=== PATIENT | female | born 1970 | race Caucasian/White ===

== ENCOUNTER 2020-08-15 06:20 | Day surgery (SDC) | payer OTHER ==
[2020-08-13 13:08] VITALS: BMI 28.3
[2020-08-15] MEDS ORDERED: SODIUM CHLORIDE 0.9% 500 ML 500 ML IV ONE (07:05)
[2020-08-15 07:08] VITALS: RESP 16; TEMP 98.1
[2020-08-15] MEDS ORDERED: fentaNYL (PF) 50 MCG/ML 2 ML AMP ONE (07:16)
[2020-08-15] MEDS: BENZOCAINE SPRAY 1 CAN MUCOUS MEM ONE ×2 (07:26→07:29)
[2020-08-15] MEDS ORDERED: fentaNYL (PF) 50 MCG/ML 2 ML AMP IV ONE (07:39)
[2020-08-15] MEDS ORDERED: MIDAZOLAM 2 MG/2 ML VIAL IV ONE (07:39)
[2020-08-15] MEDS ORDERED: SODIUM CHLORIDE 0.9% 1,000 ML IV SCH (08:00)
[2020-08-15 08:38] VITALS: BP 131/84
[2020-08-15 08:49] VITALS: PULSE 72
--- NOTE | 2020-08-15 09:15 | ECHOT ---
TRANSESOPHAGEAL ECHOCARDIOGRAM INDICATION: To rule out intracardiac thrombus. This is a 50-year-old lady who was noted on Xarelto following a questionable thrombus noted in the left atrial appendage on [place] The plan at that time was to stop the Xarelto after repeating a STARLA, that is the reason to perform this STARLA. PROCEDURE NOTE: After obtaining informed consent, transesophageal echocardiogram is performed in left lateral position using an Omni plane probe. Local and IV sedation were obtained by using 2 mg of Versed and 25 mcg of fentanyl. Patient tolerated the procedure well without any obvious immediate complications. We obtained color Doppler and 2D evaluation, agitated saline contrast study was performed. Patient received moderate conscious sedation. Total sedation time was 5 minutes. FINDINGS: 1. Left atrial appendage. There is no intracardiac thrombus. Left atrium, right atrium, right ventricle are within normal limits. Left ventricle has normal size and systolic function. 2. Mitral valve appears anatomically normal. There is trace mitral regurgitation noted. 3. There is trace tricuspid regurgitation noted. 4. Interatrial septum, there is no evidence of [id number] shunt by color-flow Doppler or [id number] shunt by agitated saline contrast study. 5. Aorta is free of aneurysm dissection of significant atherosclerosis. Aortic valve is a 3-leaflet valve. There is no evidence of aortic stenosis or regurgitation. CONCLUSION: No thrombus noted within the left atrial appendage. PLAN: I advised the patient to stop the Xarelto at this time. MMODL / IJN: [id number] /
--- NOTE | 2020-08-15 09:45 | LTR ---
DATE OF SERVICE: 08/15/2020 RE: Sari Rowe Dear Dr. Reyes; I performed transesophageal echo on Sari Rowe, a detailed STARLA is enclosed for your records. In brief, the transesophageal echo did not reveal any thrombus within the left atrial appendage and she does not need the Xarelto. Thank you for giving us the privilege in participating with this pleasant lady. Sincerely, EDUARDO Cosme / LUCIEN: [id number] /
== END 2020-08-15 09:02 | disposition home or self-care (01) ==
LOC: CATHCVL 06:20
PROVIDERS: ATTEND Internal Medicine Cardiovascular Disease
DX: G45.9 Transient cerebral ischemic attack, unspecified (principal); I10 Essential (primary) hypertension; E78.5 Hyperlipidemia, unspecified; I73.9 Peripheral vascular disease, unspecified; Z79.01 Long term (current) use of anticoagulants; Z79.51 Long term (current) use of inhaled steroids; Z79.899 Other long term (current) drug therapy; Z88.0 Allergy status to penicillin; Z88.5 Allergy status to narcotic agent; Z82.49 Family history of ischemic heart disease and other diseases of the circulatory system; Z72.0 Tobacco use
CPT/HCPCS: 93312; 93320; 93325; 81025; J2250; J3010

== ENCOUNTER 2020-09-23 11:07 | Emergency (ER) | payer OTHER ==
[2020-09-23 11:14] VITALS: RESP 18
[2020-09-23] MEDS ORDERED: KETOROLAC 15 MG/ML 1 ML VIAL IVP STA (11:41)
[2020-09-23] MEDS ORDERED: ONDANSETRON 4 MG/2 ML VIAL IVP STA (11:41)
[2020-09-23] MEDS ORDERED: SODIUM CHLORIDE 0.9% 1,000 ML IV STA (11:41)
[2020-09-23 11:56] LABS: Basophils # (A) 0.1 k/uL (0-0.2); Basophils % (A) 1 %; Eosinophils # (A) 0.1 k/uL (0-0.7); Eosinophils % (A) 3 %; HCT 42.8 % (34.0-46.0); Lymphocytes # (A) 1.6 k/uL (1.0-4.8); Lymphocytes % (A) 28 %; MCH 32.6 pg (25.0-35.0); Monocytes # (A) 0.4 k/uL (0-1.0); Monocytes % (A) 6 %; Neutrophils # (A) 3.4 k/uL (1.3-7.7); Neutrophils % (A) 60 %; Platelet Count 267 k/uL (150-450); WBC 5.7 k/uL (3.8-10.6)
--- NOTE | 2020-09-23 11:56 | ED ---
Nausea/Vomiting/Diarrhea HPI - General Chief complaint: Nausea/Vomiting/Diarrhea Stated complaint: nausea, headache, covid exposure Time Seen by Provider: 09/23/20 11:26 Source: patient Mode of arrival: ambulatory Limitations: no limitations - History of Present Illness Initial comments: Patient is a 50-year-old female, history of COPD, uses 2 L at night, hypertension, presenting to the emergency Department with complaints of nausea, body aches, chills and a headache for the past 2-3 days. Patient states she was exposed to a positive Covid case at work. Patient states her headache started about 3 days ago and then yesterday started with the body aches and chills. She has also been having nausea. No vomiting, no diarrhea, no abdominal pain. She states her chest does feel heavy, no coughing or fever. She states she has been urinating more frequently. Her appetite has been low. Patient states she "just does not feel very good." Patient has no other complaints at this time. Upon arrival to the ER, her vital signs are stable. - Related Data Home Medications Medication Instructions Recorded Confirmed ARIPiprazole [Abilify] 5 mg PO HS 08/13/20 09/23/20 Atorvastatin [Lipitor] 40 mg PO DAILY 08/13/20 09/23/20 DULoxetine HCL [Cymbalta] 60 mg PO DAILY 08/13/20 09/23/20 Losartan [Cozaar] 50 mg PO DAILY 08/13/20 09/23/20 Metoprolol Succinate [Toprol XL] 25 mg PO DAILY 08/13/20 09/23/20 Umeclidinium [place] [Incruse 1 puff INHALATION RT-DAILY 08/13/20 09/23/20 Ellipta] busPIRone HCl [Buspar] 10 mg PO BID 08/13/20 09/23/20 Albuterol Sulfate [Albuterol 1 - 2 puff PO RT-Q6H PRN 09/23/20 09/23/20 Sulfate Hfa] Gabapentin 600 mg PO BID 09/23/20 09/23/20 Ipratropium-Albuterol Nebulize 3 ml INHALATION RT-Q6H PRN 09/23/20 09/23/20 [Duoneb 0.5 mg-3 mg/3 ml Soln] Pantoprazole Sodium [Protonix] 40 mg PO DAILY 09/23/20 09/23/20 Allergies Allergy/AdvReac Type Severity Reaction Status Date / Time Penicillins Allergy Unknown Verified 09/23/20 12:08 codeine AdvReac Nausea & Verified 09/23/20 12:08 [From Tylenol-Codeine #3] Vomiting Review of Systems ROS Statement: Those systems with pertinent positive or pertinent negative responses have been documented in the HPI. ROS Other: All systems not noted in ROS Statement are negative. Past Medical History Past Medical History: Asthma, COPD, CVA/TIA, Hyperlipidemia, Hypertension, Pulmonary Embolus (PE), Sleep Apnea/CPAP/BIPAP Additional Past Medical History / Comment(s): PE dx. in May, doesn't use CPAP currently-uses O2 2l @[facility], ?TIA in May-no residual effects other than some intermittent numbness/tingling left arm, "pre-cancerous" cells breast & family hx.-grandmother & aunt History of Any Multi-Drug Resistant Organisms: None Reported Past Surgical History: Breast Surgery, Cholecystectomy, Hernia Repair, Hysterectomy Additional Past Surgical History / Comment(s): prophylactic mastectomy stephanie D/T family hx Past Anesthesia/Blood Transfusion Reactions: No Reported Reaction Past Psychological History: Anxiety, Depression Smoking Status: Former smoker - Past Family History Mother Additional Family Medical History / Comment(s): had heart valve replacement General Exam - General Exam Comments Initial Comments: GENERAL: Patient is well-developed and well-nourished. Patient is nontoxic and in no acute distress. HEAD: Atraumatic, normocephalic. EYES: Pupils equal round and reactive to light, extraocular movements intact, sclera anicteric, conjunctiva are normal. Eyelids were unremarkable. ENT: TMs normal, nares patent, oropharynx clear without exudates. Moist mucous membranes. NECK: Normal range of motion, supple without lymphadenopathy or JVD. LUNGS: Unlabored respirations. Breath sounds clear to auscultation bilaterally and equal. No wheezes rales or rhonchi. HEART: Regular rate and rhythm without murmurs, rubs or gallops. ABDOMEN: Soft, nontender, normoactive bowel sounds. No guarding, no rebound. No masses appreciated. : Deferred MUSCULOSKELETAL: Normal extremities with adequate strength and normal range of motion, no pitting or edema. No clubbing or cyanosis. NEUROLOGICAL: Patient is alert and oriented x 3. Motor and sensory are also intact. Cranial nerves II through XII grossly intact. Symmetrical smile. Normal speech, normal gait. PSYCH: Normal mood, normal affect. SKIN: Warm, Dry, normal turgor, no rashes or lesions noted. Limitations: no limitations Course Vital Signs 09/23/20 11:11 Temperature 98.4 F Pulse Rate 76 Respiratory 18 Rate Blood Pressure 152/99 O2 Sat by Pulse 98 Oximetry Medical Decision Making - Medical Decision Making Patient is a 50-year-old female here with body aches, chills, nausea for the pas t 3 days. She was exposed to a positive Covid case at her work. Her vital signs are stable upon arrival, her EKG shows no acute process. Her exam reveals no acute findings. Labs reveal a normal white count, kidney function is stable, liver enzymes are very slightly elevated, troponin is negative, urine shows no evidence of infection, rapid Covid and influenza are both negative today. Chest x-ray shows no acute process. Patient was given fluids, Zofran and reports improvement in her symptoms. I discussed the patient even on her rapid test is negative today, she still presenting for possible Covid infection. Recommended continuous of quarantine. Continue to increase fluids, take Tylenol as needed for body aches. She can follow up with her PCP. Return parameters were discussed with the patient she verbalized understanding. Case discussed with Dr. Ware. - Lab Data Result diagrams: 09/23/20 11:44 09/23/20 11:44 Lab Results 09/23/20 09/23/20 09/23/20 Range/Units 11:44 11:44 11:44 WBC 5.7 (3.8-10.6) k/uL RBC 4.60 (3.80-5.40) m/uL Hgb 15.0 (11.4-16.0) gm/dL Hct 42.8 (34.0-46.0) % MCV 93.0 (80.0-100.0) fL MCH 32.6 (25.0-35.0) pg MCHC 35.0 (31.0-37.0) g/dL RDW 12.0 (11.5-15.5) % Plt Count 267 (150-450) k/uL MPV 7.0 Neutrophils % 60 % Lymphocytes % 28 % Monocytes % 6 % Eosinophils % 3 % Basophils % 1 % Neutrophils # 3.4 (1.3-7.7) k/uL Lymphocytes # 1.6 (1.0-4.8) k/uL Monocytes # 0.4 (0-1.0) k/uL Eosinophils # 0.1 (0-0.7) k/uL Basophils # 0.1 (0-0.2) k/uL Sodium 138 (137-145) mmol/L Potassium 3.4 L (3.5-5.1) mmol/L Chloride 100 (98-107) mmol/L Carbon Dioxide 34 H (22-30) mmol/L Anion Gap 4 mmol/L BUN 9 (7-17) mg/dL Creatinine 0.67 (0.52-1.04) mg/dL Est GFR (CKD-EPI)AfAm >90 (>60 ml/min/1.73 sqM) Est GFR (CKD-EPI)NonAf >90 (>60 ml/min/1.73 sqM) Glucose 103 H (74-99) mg/dL Plasma Lactic Acid Michi 1.3 (0.7-2.0) mmol/L Calcium 9.5 (8.4-10.2) mg/dL Total Bilirubin 0.7 (0.2-1.3) mg/dL AST 38 H (14-36) U/L ALT 35 H (4-34) U/L Alkaline Phosphatase 117 (38-126) U/L Troponin I (0.000-0.034) ng/mL Total Protein 7.1 (6.3-8.2) g/dL Albumin 4.2 (3.5-5.0) g/dL Urine Color Urine Appearance (Clear) Urine pH (5.0-8.0) Ur Specific [place] (1.001-1.035) Urine Protein (Negative) Urine Glucose (UA) (Negative) Urine Ketones (Negative) Urine Blood (Negative) Urine Nitrite (Negative) Urine Bilirubin (Negative) Urine Urobilinogen (<2.0) mg/dL Ur Leukocyte Esterase (Negative) Coronavirus (PCR) (Not Detectd) Influenza Type A RNA (Not Detectd) Influenza Type B (PCR) (Not Detectd) 09/23/20 09/23/20 09/23/20 Range/Units 11:44 12:21 12:21 WBC (3.8-10.6) k/uL RBC (3.80-5.40) m/uL Hgb (11.4-16.0) gm/dL Hct (34.0-46.0) % MCV (80.0-100.0) fL MCH (25.0-35.0) pg MCHC (31.0-37.0) g/dL RDW (11.5-15.5) % Plt Count (150-450) k/uL MPV Neutrophils % % Lymphocytes % % Monocytes % % Eosinophils % % Basophils % % Neutrophils # (1.3-7.7) k/uL Lymphocytes # (1.0-4.8) k/uL Monocytes # (0-1.0) k/uL Eosinophils # (0-0.7) k/uL Basophils # (0-0.2) k/uL Sodium (137-145) mmol/L Potassium (3.5-5.1) mmol/L Chloride (98-107) mmol/L Carbon Dioxide (22-30) mmol/L Anion Gap mmol/L BUN (7-17) mg/dL Creatinine (0.52-1.04) mg/dL Est GFR (CKD-EPI)AfAm (>60 ml/min/1.73 sqM) Est GFR (CKD-EPI)NonAf (>60 ml/min/1.73 sqM) Glucose (74-99) mg/dL Plasma Lactic Acid Michi (0.7-2.0) mmol/L Calcium (8.4-10.2) mg/dL Total Bilirubin (0.2-1.3) mg/dL AST (14-36) U/L ALT (4-34) U/L Alkaline Phosphatase (38-126) U/L Troponin I <0.012 (0.000-0.034) ng/mL Total Protein (6.3-8.2) g/dL Albumin (3.5-5.0) g/dL Urine Color Yellow Urine Appearance Clear (Clear) Urine pH 7.0 (5.0-8.0) Ur Specific [place] 1.015 (1.001-1.035) Urine Protein Negative (Negative) Urine Glucose (UA) Negative (Negative) Urine Ketones Negative (Negative) Urine Blood Negative (Negative) Urine Nitrite Negative (Negative) Urine Bilirubin Negative (Negative) Urine Urobilinogen 4.0 (<2.0) mg/dL Ur Leukocyte Esterase Negative (Negative) Coronavirus (PCR) Not Detected (Not Detectd) Influenza Type A RNA Not Detected (Not Detectd) Influenza Type B (PCR) Not Detected (Not Detectd) - EKG Data EKG Comments: Normal sinus rhythm, normal ECG, no signs of acute process. Ventricular rate 69, MN interval 1:30, QTC 410. Disposition Clinical Impression: Viral infection, Dehydration Disposition: HOME SELF-CARE Condition: Stable Instructions (If sedation given, give patient instructions): Viral Syndrome (ED) Additional Instructions: Please return to the Emergency Department if symptoms worsen or any other concerns. Workup today including chest x-ray and Covid test are negative. Continue to increase fluid intake, take Zofran as needed for additional nausea. Follow up with her PCP in 1-3 days. Is patient prescribed a controlled substance at d/c from ED?: No Referrals: Amy Jackson MD [Primary Care Provider] - 1-2 days
[2020-09-23 12:09] LABS: ALT 35 U/L (4-34); AST 38 U/L (14-36); African American GFR (CKD) >90 (>60 ml/min/1.73 sqM); Albumin 4.2 g/dL (3.5-5.0); Alkaline Phosphatase 117 U/L (38-126); Anion Gap 4 mmol/L; Blood Urea Nitrogen 9 mg/dL (7-17); Calcium 9.5 mg/dL (8.4-10.2); Carbon Dioxide 34 mmol/L (22-30); Chloride 100 mmol/L (98-107); Glucose 103 mg/dL (74-99); Non-African American GFR(CKD) >90 (>60 ml/min/1.73 sqM); Potassium 3.4 mmol/L (3.5-5.1); Sodium 138 mmol/L (137-145); Total Bilirubin 0.7 mg/dL (0.2-1.3); Total Protein 7.1 g/dL (6.3-8.2)
[2020-09-23 12:32] LABS: Appearance,Urine Clear (Clear); Bilirubin,Urine Negative (Negative); Blood,Urine Negative (Negative); Color,Urine Yellow; Glucose,Urine (UA) Negative (Negative); Ketones,Urine Negative (Negative); Leukocyte Esterase,Urine Negative (Negative); Nitrite,Urine Negative (Negative); Protein,Urine Negative (Negative); Specific Gravity,Urine 1.015 (1.001-1.035)
[2020-09-23 13:09] LABS: SARS-CoV-2 RNA Rapid Abbott Not Detected (Not Detectd)
--- NOTE | 2020-09-23 13:42 | XR ---
EXAMINATION TYPE: XR chest 2V DATE OF EXAM: 09/23/2020 COMPARISON: Prior chest x-ray dated 07/11/2020 HISTORY: COPD TECHNIQUE: Frontal and lateral views of the chest are obtained. FINDINGS: Surgical clips are present over the breasts as on prior exam, suspect breast prostheses. N o evident pneumothorax or pleural effusion. Cardiac mediastinal silhouette, pulmonary vascularity and arya are stable. No evident airspace disease. Prominent lung volumes may be indicative of underlying COPD. Surgical clips present in the upper abdomen. IMPRESSION: No acute cardiopulmonary process.
[2020-09-23] MEDS ORDERED: ONDANSETRON 4 MG ODT STARTER PACK 2 TAB BTL PO STA (13:53)
[2020-09-23 14:14] VITALS: BP 137/82; PULSE 82; TEMP 99.2
== END 2020-09-23 14:14 | disposition home or self-care (01) ==
LOC: EC 11:07
DX: B34.9 Viral infection, unspecified (principal); E86.0 Dehydration; R74.8 Abnormal levels of other serum enzymes; I10 Essential (primary) hypertension; E78.5 Hyperlipidemia, unspecified; J44.9 Chronic obstructive pulmonary disease, unspecified; G47.30 Sleep apnea, unspecified; F41.9 Anxiety disorder, unspecified; F32.9 Major depressive disorder, single episode, unspecified; Z79.899 Other long term (current) drug therapy; Z88.5 Allergy status to narcotic agent; Z88.0 Allergy status to penicillin; Z86.711 Personal history of pulmonary embolism; Z90.49 Acquired absence of other specified parts of digestive tract; Z87.891 Personal history of nicotine dependence; Z99.89 Dependence on other enabling machines and devices; Z86.73 Personal history of transient ischemic attack (TIA), and cerebral infarction without residual deficits; Z20.828 Contact with and (suspected) exposure to other viral communicable diseases
CPT/HCPCS: 36415; 93005; 80053; 83605; 84484; 85025; 81003; 87502; 87635; 71046; 99284; 96374; 96375; 96361; J2405; J1885; S0119

== ENCOUNTER → 2020-11-18 | Outpatient (CLI) | payer OTHER ==
--- NOTE | 2020-11-18 09:02 | CT ---
EXAMINATION TYPE: CT angio chest DATE OF EXAM: 11/18/2020 COMPARISON: Radiograph 11/06/2020. Prior CT 10/30/2013 HISTORY: 50-year-old female are 06.09, dyspnea TECHNIQUE: Contiguous axial scanning of the chest performed with IV Contrast, patient injected with 1 00 mL of Isovue 370. Coronal/sagittal MIP reconstructions performed. CT DLP: 185.2 mGycm Automated exposure control for dose reduction was used. FINDINGS: Bilateral breast implants are demonstrated. Heart upper limits of normal in size without pericardial effusion. Aorta normal caliber with conventional arch vessel branching anatomy. Satisfactory opacification of the pulmonary arterial system. No evidence for pulmonary embolus. No thoracic lymphadenopathy by CT size criteria. Small calcified left hilar and AP window lymph nodes compatible with prior granulomatous disease. Mild apical pleural scarring. Mild to moderate diffuse bronchial wall thickening. No consolidation or pleural effusion. Strandy atelectasis or scarring at the left base. Small approximately 1 cm nonspecific hypodensity within the medial spleen was partially visualized on the 2013 exam. Otherwise, visualized upper abdomen otherwise shows no gross abnormality. Bones: Accentuated mid thoracic kyphosis with mild degenerative disc disease. IMPRESSION: 1. NO EVIDENCE FOR PULMONARY EMBOLUS. 2. MILD TO MODERATE BRONCHIAL WALL THICKENING COULD REFLECT BRONCHITIS OR CHRONIC ASTHMA. 3. SMALL HIATAL HERNIA.
== END | disposition home or self-care (01) ==
LOC: RADCTMAIN 07:41
PROVIDERS: ATTEND Internal Medicine
DX: K44.9 Diaphragmatic hernia without obstruction or gangrene (principal); J98.09 Other diseases of bronchus, not elsewhere classified
CPT/HCPCS: 71275; Q9967

== ENCOUNTER 2020-12-09 10:02 | Day surgery (SDC) | payer OTHER ==
[2020-12-05 15:12] VITALS: BMI 27.6
[~2020-12-09 10:02] MED LIST: LACTATED RINGERS 1,000 ML IV SCH; LIDOCAINE 1% (10MG/ML) FOR IV START INTRADERMA PRN; MIDAZOLAM 2 MG/2 ML VIAL IV PRN
[2020-12-09 10:17] VITALS: TEMP 97.2
[2020-12-09] MEDS ORDERED: PROPOFOL 10 MG/ML 20 ML VIAL IV ONE (11:10)
[2020-12-09 11:41] VITALS: RESP 16
--- NOTE | 2020-12-09 11:43 | P.PCN ---
Date of Procedure: 12/09/20 Description of Procedure: BRIEF HISTORY: Patient is a 42-year-old female presenting for outpatient colonoscopy for evaluation of diarrhea. Patient was seen in GI clinic reporting 2-3 loose bowel movements daily. She reported associated urgency, bloating and left lower quadrant abdominal pain and cramping. She previously had colonoscopy in 2018 and was told to repeat 3 years later. PROCEDURE PERFORMED: Colonoscopy with polypectomy. PREOPERATIVE DIAGNOSIS: Diarrhea, left lower quadrant abdominal pain, prior colonoscopy in 2018. ESTIMATED BLOOD LOSS: Minimal. IV sedation per Anesthesia. PROCEDURE: After informed consent was obtained, the patient, was brought into the endoscopy unit. IV sedation was administered by Anesthesia under continuous monitoring. Digital rectal examination was normal. Initially the Olympus CF-190 flexible video colonoscope was then inserted in the rectum, gradually advanced into the cecum without any difficulty. Careful examination was performed as the scope was gradually being withdrawn. Ileocecal valve and the appendiceal orifice were visualized and appeared normal. Prep was excellent. Mucosa of the cecum, ascending colon, transverse colon, descending colon, sigmoid colon, and rectum appeared normal, with random biopsies in the right left colon. Terminal ileum also appeared normal with biopsied. Diminutive 2 mm polyp in the descending colon removed with cold forcep polypectomy. Patient did have an Endo Clip noted on the ileocecal valve from prior endoscopy. Retroflexion was performed in the rectum and no lesions were seen. The patient tolerated the procedure well. IMPRESSION: Normal-appearing colon from rectum to cecum and normal-appearing terminal ileum with random biopsies taken of the terminal ileum, right and left colon. Diminutive descending colon polyp removed with cold forceps. Endo Clip noted on the ileocecal valve from prior colonoscopy. RECOMMENDATIONS: Findings of this examination were discussed with the patient and her family. Okay to resume diet. Okay to resume medications. Await pathology from biopsies. Follow up in GI clinic as scheduled. Recommend repeat colonoscopy in 5 years for colon polyps pending pathology from polypectomy.
[2020-12-09 12:05] VITALS: BP 131/78; PULSE 72
== END 2020-12-09 12:33 | disposition home or self-care (01) ==
LOC: ORWHC2ENDO 10:02
PROVIDERS: ATTEND Internal Medicine
DX: K52.9 Noninfective gastroenteritis and colitis, unspecified (principal); K63.5 Polyp of colon; Z98.890 Other specified postprocedural states; Z87.891 Personal history of nicotine dependence; Z88.0 Allergy status to penicillin; Z88.5 Allergy status to narcotic agent; Z79.899 Other long term (current) drug therapy; Z79.01 Long term (current) use of anticoagulants; Z90.49 Acquired absence of other specified parts of digestive tract; Z90.710 Acquired absence of both cervix and uterus; Z97.8 Presence of other specified devices
CPT/HCPCS: 88305; 45380; J2250; J2704

== ENCOUNTER 2021-01-09 14:04 | Observation (INO) | payer OTHER ==
[2021-01-09 14:43] LABS: Basophils % (A) 0 %; Eosinophils # (A) 0.2 k/uL (0-0.7); Eosinophils % (A) 5 %; HCT 40.8 % (34.0-46.0); HGB 14.1 gm/dL (11.4-16.0); Lymphocytes # (A) 1.6 k/uL (1.0-4.8); Lymphocytes % (A) 31 %; MCH 32.2 pg (25.0-35.0); MCHC 34.4 g/dL (31.0-37.0); MCV 93.5 fL (80.0-100.0); Monocytes # (A) 0.3 k/uL (0-1.0); Monocytes % (A) 7 %; Neutrophils # (A) 2.9 k/uL (1.3-7.7); Neutrophils % (A) 56 %; Platelet Count 263 k/uL (150-450); RBC 4.37 m/uL (3.80-5.40); RDW 12.8 % (11.5-15.5); WBC 5.2 k/uL (3.8-10.6)
--- NOTE | 2021-01-09 14:45 | XR ---
EXAMINATION TYPE: XR chest 2V DATE OF EXAM: 01/09/2021 COMPARISON: 09/23/2020 TECHNIQUE: PA and lateral views submitted. HISTORY: Chest pain FINDINGS: The lungs are clear and there is no pneumothorax, pleural effusion, or focal pneumonia. Hyperinflat ion. Heart enlarged. Surgical clips seen overlying the chest bilaterally. No overt failure. Hypertrop hic and degenerative change of the spine. Surgical clips in the abdomen. Biapical pleural thickening. IMPRESSION: 1. COPD..
[2021-01-09 14:54] LABS: INR 0.9 (<1.2); Partial Thromboplastin Time 24.2 sec (22.0-30.0); Prothrombin Time 10.1 sec (9.0-12.0)
[2021-01-09 14:55] LABS: ALT 34 U/L (4-34); AST 34 U/L (14-36); African American GFR (CKD) >90 (>60 ml/min/1.73 sqM); Albumin 4.5 g/dL (3.5-5.0); Alkaline Phosphatase 126 U/L (38-126); Anion Gap 8 mmol/L; Blood Urea Nitrogen 10 mg/dL (7-17); Calcium 9.4 mg/dL (8.4-10.2); Carbon Dioxide 34 mmol/L (22-30); Chloride 98 mmol/L (98-107); Glucose 99 mg/dL (74-99); Magnesium 1.5 mg/dL (1.6-2.3); Non-African American GFR(CKD) 90 (>60 ml/min/1.73 sqM); Potassium 3.4 mmol/L (3.5-5.1); Sodium 140 mmol/L (137-145); Total Bilirubin 0.7 mg/dL (0.2-1.3); Total Protein 7.4 g/dL (6.3-8.2)
[2021-01-09] MEDS ORDERED: MORPHINE SULFATE 4 MG/ML SYRINGE IVP STA ×2 (16:15→18:06)
--- NOTE | 2021-01-09 17:15 | CT ---
EXAMINATION TYPE: CT chest angio for PE DATE OF EXAM: 01/09/2021 COMPARISON: 11/18/2020 HISTORY: Pleuritic chest pain, history of PE. CT DLP: 303.3 mGycm Automated exposure control for dose reduction was used. CONTRAST: Performed with IV Contrast, patient injected with 100 mL of Isovue 370. There are 3-D post processed images. There is some mild reticular interstitial infiltrate in the lower lung munoz. There is no pulmonary mass. There is no mediastinal adenopathy. There are no hilar masses. Heart size is normal. There is no pericardial effusion. Thoracic aorta is intact. There is no aneurys m or dissection. There is normal contrast opacification of the pulmonary arteries. There are no filling defects. There are bilateral breast implants. Thoracic vertebra show fairly normal alignment. There is no compressi on fracture. The ribs appear intact. Shoulder joints are intact. There is 2 cm cyst in the superior s pleen. IMPRESSION: No evidence of pulmonary embolism. There is new minimal interstitial infiltrate in the lower lung fie lds compared to old exam.
[2021-01-09] MEDS ORDERED: ASPIRIN 81 MG PO STA (18:06)
--- NOTE | 2021-01-09 18:14 | ED ---
Chest Pain HPI - General Chief Complaint: Chest Pain Stated Complaint: Chest tightness,L Arm tingling Time Seen by Provider: 01/09/21 14:10 Source: patient Mode of arrival: wheelchair Limitations: no limitations - History of Present Illness Initial Comments: 50-year-old female with past medical history of COPD on 2 L at night, asthma, hypertension, PE who presents emergency Department with reported left sided chest pain. Patient reports the pain started last night. Radiates into her left arm. States it's pleuritic in nature and constant. Admits to associated nausea without vomiting. No fevers, chills or cough. Denies previous history of cardiac disease. Does have a history of PE and states she has not been on her anticoagulation. Denies abdominal pain. No unilateral numbness or weakness. Last stress test was several years ago. No alleviating, precipitating or modifying factors - Related Data Home Medications Medication Instructions Recorded Confirmed ARIPiprazole [Abilify] 5 mg PO DAILY 08/13/20 01/09/21 Atorvastatin [Lipitor] 40 mg PO HS 08/13/20 01/09/21 DULoxetine HCL [Cymbalta] 60 mg PO DAILY 08/13/20 01/09/21 Losartan [Cozaar] 50 mg PO DAILY 08/13/20 01/09/21 Metoprolol Succinate [Toprol XL] 25 mg PO DAILY 08/13/20 01/09/21 Umeclidinium [place] [Incruse 1 puff INHALATION RT-DAILY 08/13/20 01/09/21 Ellipta] busPIRone HCl [Buspar] 10 mg PO BID 08/13/20 01/09/21 Albuterol Sulfate [Albuterol 1 - 2 puff INHALATION RT-Q6H PRN 09/23/20 01/09/21 Sulfate Hfa] Gabapentin 600 mg PO BID 09/23/20 01/09/21 Ipratropium-Albuterol Nebulize 3 ml INHALATION RT-Q6H PRN 09/23/20 01/09/21 [Duoneb 0.5 mg-3 mg/3 ml Soln] Pantoprazole Sodium [Protonix] 40 mg PO DAILY 09/23/20 01/09/21 Acetaminophen Tab [Tylenol] 1,000 mg PO Q6HR PRN 01/09/21 01/09/21 Hyoscyamine Sulfate [Hyoscyamine 0.125 mg SL Q6H PRN 01/09/21 01/09/21 Sulfate SL] Previous Rx's Medication Instructions Recorded Rivaroxaban [Xarelto] 20 mg PO W/SUPPER #30 tab 01/10/21 Allergies Allergy/AdvReac Type Severity Reaction Status Date / Time Penicillins Allergy Unknown Verified 01/09/21 16:42 codeine AdvReac Nausea & Verified 01/09/21 16:42 [From Tylenol-Codeine #3] Vomiting Review of Systems ROS Statement: Those systems with pertinent positive or pertinent negative responses have been documented in the HPI. ROS Other: All systems not noted in ROS Statement are negative. EKG Findings - EKG Comments: EKG Findings:: EKG demonstrates a sinus rhythm with a ventricular rate of 74. [place] interval 140. Dress 80. QTC 448. No acute ST segment elevations or depressions Past Medical History Past Medical History: Asthma, COPD, CVA/TIA, Hyperlipidemia, Hypertension, Pulmonary Embolus (PE), Sleep Apnea/CPAP/BIPAP Additional Past Medical History / Comment(s): PE dx. in May, doesn't use CPAP currently-uses O2 2l @[facility], ?TIA in May-no residual effects other than some intermittent numbness/tingling left arm, "pre-cancerous" cells breast & family hx.-grandmother & aunt History of Any Multi-Drug Resistant Organisms: None Reported Past Surgical History: Breast Surgery, Cholecystectomy, Hernia Repair, Hysterectomy Additional Past Surgical History / Comment(s): prophylactic mastectomy stephanie D/T family hx Past Anesthesia/Blood Transfusion Reactions: No Reported Reaction Past Psychological History: Anxiety, Depression Smoking Status: Former smoker Past Alcohol Use History: None Reported Past Drug Use History: None Reported - Past Family History Mother Additional Family Medical History / Comment(s): had heart valve replacement General Exam Limitations: no limitations General appearance: alert, in no apparent distress Head exam: Present: atraumatic, normocephalic, normal inspection Eye exam: Present: normal appearance, PERRL, EOMI. Absent: scleral icterus, conjunctival injection, periorbital swelling ENT exam: Present: normal exam, mucous membranes moist Neck exam: Present: normal inspection. Absent: tenderness, meningismus, lymphadenopathy Respiratory exam: Present: normal lung sounds bilaterally. Absent: respiratory distress, wheezes, rales, rhonchi, stridor Cardiovascular Exam: Present: regular rate, normal rhythm, normal heart sounds. Absent: systolic murmur, diastolic murmur, rubs, gallop, clicks GI/Abdominal exam: Present: soft, normal bowel sounds. Absent: distended, tenderness, guarding, rebound, rigid Extremities exam: Present: normal inspection, full ROM, normal capillary refill, other (equal websphere consultant strength). Absent: tenderness, pedal edema, joint swelling, calf tenderness Back exam: Present: normal inspection Neurological exam: Present: alert, oriented X3, CN II-XII intact Psychiatric exam: Present: normal affect, normal mood Skin exam: Present: warm, dry, intact, normal color. Absent: rash Course Vital Signs 01/09/21 01/09/21 01/09/21 14:10 15:44 16:36 Temperature 98.0 F Pulse Rate 73 63 73 Pulse Rate [ Pulse Oximetery ] Respiratory 18 18 18 Rate Blood Pressure 148/97 164/97 155/90 Blood Pressure [Right Arm] O2 Sat by Pulse 100 99 100 Oximetry 01/09/21 01/09/21 01/09/21 18:05 19:36 22:37 Temperature 97.6 F Pulse Rate 71 72 Pulse Rate [ 68 Pulse Oximetery ] Respiratory 18 18 19 Rate Blood Pressure 154/97 130/80 Blood Pressure 144/80 [Right Arm] O2 Sat by Pulse 95 95 98 Oximetry Chest Pain MDM - MDM Upon arrival patient was placed into trauma bay 2. A thorough history and physical exam was performed. 12-lead EKG is performed. IV is established. Patient was given a dose of morphine. Lab studies conducted and a chest x-rays performed. Results are reviewed with the patient. Because of her history of previous PE she is CT which demonstrates no evidence of pulmonary is him. New minimal interstitial infiltrate in the lower lung munoz. Patient does not have any symptoms of infectious process and therefore anabiotic or held at this time. She is given an aspirin. Patient continues to have worsening pain therefore given a second dose of morphine. I did discuss results with Dr. Jackson. patient will be admitted at this time. Cardiology will be placed on consult. Dr. Jackson does request that I restart her xarelto. Patient agreed to the treatment plan and is awaiting a bed on the floor Disposition Clinical Impression: Chest pain Disposition: ADMITTED IP TO THIS HOSP Condition: Stable Is patient prescribed a controlled substance at d/c from ED?: No Decision to Admit Reason: Admit from EC Decision Date: 01/09/21 Decision Time: 18:14
[2021-01-09] MEDS ORDERED: NALOXONE 0.4 MG/ML 1 ML VIAL IV PRN (18:15)
[2021-01-09] MEDS ORDERED: HYOSCYAMINE SULFATE 0.125 MG TAB PO PRN (18:16)
[2021-01-09] MEDS ORDERED: ATORVASTATIN 40 MG TAB PO SCH (21:00)
[2021-01-09] MEDS: GABAPENTIN 300 MG CAP PO SCH (22:30)
[2021-01-09] MEDS: busPIRone HCl 10 MG TAB PO SCH (22:30)
[2021-01-09] MEDS: MORPHINE SULFATE 4 MG/ML SYRINGE IV PRN (22:31)
[2021-01-10] MEDS: RIVAROXABAN 20 MG TAB PO SCH ×2 (01:01→16:35)
[2021-01-10] MEDS ORDERED: PANTOPRAZOLE 40 MG TABLET PO SCH (07:30)
[2021-01-10] MEDS: IPRATROPIUM 0.5 MG/2.5 ML NEBU INHALATION SCH ×3 (07:35→15:37)
[2021-01-10] MEDS: IPRATROPIUM-ALBUTEROL 3 ML NEB INHALATION PRN ×2 (07:35→11:35)
[2021-01-10 07:37] VITALS: TEMP 98
[2021-01-10] MEDS: busPIRone HCl 10 MG TAB PO SCH (07:37)
[2021-01-10] MEDS: GABAPENTIN 300 MG CAP PO SCH (07:38)
[2021-01-10] MEDS: MORPHINE SULFATE 4 MG/ML SYRINGE IV PRN (07:38)
[2021-01-10] MEDS ORDERED: DULoxetine HCL 60 MG CAPSULE.DR PO SCH (09:00)
[2021-01-10] MEDS ORDERED: LOSARTAN 50 MG TAB PO SCH (09:00)
[2021-01-10] MEDS ORDERED: METOPROLOL SUCCINATE (ER) 25 MG TAB.ER.24H PO SCH (09:00)
[2021-01-10 09:12] LABS: Basophils # (A) 0.03 X 10*3/uL (0.00-0.10); Basophils % (A) 0.8 %; Eosinophils # (A) 0.22 X 10*3/uL (0.04-0.35); Eosinophils % (A) 5.8 %; HCT 38.5 % (37.2-46.3); Lymphocytes # (A) 1.09 X 10*3/uL (0.90-5.00); Lymphocytes % (A) 28.8 %; MCH 32.1 pg (27.0-32.0); MCHC 33.8 g/dL (32.0-37.0); MCV 95.1 fL (80.0-97.0); Mean Platelet Volume 10.3 fL (9.5-12.2); Monocytes # (A) 0.48 X 10*3/uL (0.20-1.00); Monocytes % (A) 12.7 %; Neutrophils # (A) 1.96 X 10*3/uL (1.80-7.70); Neutrophils % (A) 51.6 %; Platelet Count 253 X 10*3/uL (140-440); RBC 4.05 X 10*6/uL (4.10-5.20); RDW 12.9 % (11.5-14.5); WBC 3.79 X 10*3/uL (4.50-10.00)
[2021-01-10 10:19] LABS: African American GFR (CKD) 124.9 (60.0-200.0); Anion Gap 11.8 mmol/L (4.00-12.00); Calcium 9.2 mg/dL (8.7-10.3); Carbon Dioxide 32.2 mmol/L (21.6-31.8); Non-African American GFR(CKD) 107.8 (60.0-200.0); Potassium 3.3 mmol/L (3.5-5.5)
[2021-01-10] MEDS ORDERED: POTASSIUM CHLORIDE ER 20 MEQ TAB.ER PO STA ×2 (10:50→16:18)
[2021-01-10] MEDS ORDERED: KETOROLAC 15 MG/ML 1 ML VIAL IVP PRN (10:51)
--- NOTE | 2021-01-10 11:37 | CT ---
EXAMINATION TYPE: CT brain wo con DATE OF EXAM: 01/10/2021 COMPARISON: INDICATION: Lt arm tingling, numbness and tingling to mouth DLP: 1195 mGycm, Automated exposure control for dose reduction was used. CONTRAST: None CT of the brain is performed utilizing 3 mm thick sections through the posterior fossa and 3 mm thick sections through the remaining calvarium. Study is performed within 24 hours of arrival to the hosp [facility]. No abnormal hyperdensity is present to suggest an acute intracranial hemorrhage. No mass lesion is evident. Arachnoid cyst in the midline posterior fossa may be present. No acute infarcts are evident. Ventricles and sulci are appropriate for the patient age. Paranasal sinuses and mastoid air cells within the [id number] are clear. IMPRESSIONS: 1. Normal CT Brain 2. No acute intracranial process.
--- NOTE | 2021-01-10 12:22 | P.CNNES ---
History of Present Illness Consult date: 01/10/21 Requesting physician: Mariana Orozco Reason for Consult: numbness tingling left arm and mouth History of Present Illness: This is a 50-year-old woman medical history of stroke mop pulmonary embolism and not on any anticoagulation and bilateral selective me in 2016 because of left precancerous breast cancer as well as significant family history of breast cancer that presented to the emergency department on the year 01/09/2021 for left-sided chest pain going on for the last days rating to the left arm. Neurology is consulted for left arm and numbness and tingling. Upon seeing the patient at bedside she stated that she is having the tingling over the posterior entire forearm over into the left hand and she said it's been going on since 11 AM yesterday and that's been intermittent lasted for half hour to an hour then subsides shortly then comes back again associate with that tingling over the mouth entire. He denies any weakness of the left upper extremity or anywhere else. She denies of any other weakness, visual disturbance, difficulty getting her words out or swallowing. Patient stated that she has a headache over retro- orbital parietal region end at 7/10 but denies any nausea vomiting, photophobia or phonophobia. She denies of any neck pain. Patient home medication is gabapentin 600 mg 1 tablet twice a day, Lipitor 40 mg daily at bedtime, Abilify 5 mg daily, BuSpar 10 mg twice a day, metoprolol, losartan, Cymbalta. Patient stated that she had similar presentation of tingling in the left arm hand and May 2020 and at that time she was in [place] and she had the workup done at [facility] hospital has stroke workup was told she has transient ischemic attack. She also has pulmonary embolism and she's been on Xarelto but she stated she's been follow-up with the costumed character entertainer and processing supervisor in the costumed character entertainer notified her that she doesn't need to be on anticoagulation while the processing supervisor stated yes so she decided to stop by take in the anticoagulation that in July 2021. She said in the past when she was on aspirin she had GI bleed. She has not followed up with the neurologist as since her discharge from the [facility]. She has precancerous over the left breast with significant family history of breast cancer so she decided to have bilateral mastectomy in 2016. She has a history of tobacco use and smokes for 20-25 years and used to smoke about half a pack but quit in 2016. She socially drinks alcohol. Workup in the hospital consisted of: Initial vital signs: Blood pressure of 148/97, heart rate of 73, respiratory of 18, temperature of 98.0 Fahrenheit oral pulse ox 100% at room air. Chest CTA is reported as no evidence of pulmonary embolism. There is new minimal interstitial infiltrates in the lower lung munoz compared to old exam. EKG is reported as normal sinus rhythm. RSR or QR pattern in V1 suggests right ventricular conduction delay. Nonspecific ST abnormality. Abnormal EKG. Sodium is 140 which is normal, calcium is 9 point fours normal, troponin has been less than 0.012 twice. Magnesium is 1.5 which is minimally low. The primary team ordered a CT of the head today and it was reported as normal CT brain. No acute intracranial process. Review of Systems Review of system: The 12 point system was reviewed and apparent positive and negative per HPI. Past Medical History Past Medical History: Asthma, COPD, CVA/TIA, Hyperlipidemia, Hypertension, Pulmonary Embolus (PE), Sleep Apnea/CPAP/BIPAP Additional Past Medical History / Comment(s): PE dx. in May, doesn't use CPAP currently-uses O2 2l @[facility], ?TIA in May-no residual effects other than some intermittent numbness/tingling left arm, "pre-cancerous" cells breast & family hx.-grandmother & aunt History of Any Multi-Drug Resistant Organisms: None Reported Past Surgical History: Breast Surgery, Cholecystectomy, Hernia Repair, Hysterectomy Additional Past Surgical History / Comment(s): prophylactic mastectomy stephanie D/T family hx Past Anesthesia/Blood Transfusion Reactions: No Reported Reaction Past Psychological History: Anxiety, Depression Smoking Status: Former smoker Past Alcohol Use History: None Reported Past Drug Use History: None Reported - Past Family History Mother Additional Family Medical History / Comment(s): had heart valve replacement Medications and Allergies Home Medications Medication Instructions Recorded Confirmed Type ARIPiprazole [Abilify] 5 mg PO DAILY 08/13/20 01/09/21 History Atorvastatin [Lipitor] 40 mg PO HS 08/13/20 01/09/21 History DULoxetine HCL [Cymbalta] 60 mg PO DAILY 08/13/20 01/09/21 History Losartan [Cozaar] 50 mg PO DAILY 08/13/20 01/09/21 History Metoprolol Succinate [Toprol XL] 25 mg PO DAILY 08/13/20 01/09/21 History Umeclidinium [place] [Incruse 1 puff INHALATION RT-DAILY 08/13/20 01/09/21 History Ellipta] busPIRone HCl [Buspar] 10 mg PO BID 08/13/20 01/09/21 History Albuterol Sulfate [Albuterol 1 - 2 puff INHALATION RT-Q6H PRN 09/23/20 01/09/21 History Sulfate Hfa] Gabapentin 600 mg PO BID 09/23/20 01/09/21 History Ipratropium-Albuterol Nebulize 3 ml INHALATION RT-Q6H PRN 09/23/20 01/09/21 History [Duoneb 0.5 mg-3 mg/3 ml Soln] Pantoprazole Sodium [Protonix] 40 mg PO DAILY 09/23/20 01/09/21 History Acetaminophen Tab [Tylenol Tab] 1,000 mg PO Q6HR PRN 01/09/21 01/09/21 History Hyoscyamine Sulfate [Hyoscyamine 0.125 mg SL Q6H PRN 01/09/21 01/09/21 History Sulfate SL] Allergies Allergy/AdvReac Type Severity Reaction Status Date / Time Penicillins Allergy Unknown Verified 01/09/21 16:42 codeine AdvReac Nausea & Verified 01/09/21 16:42 [From Tylenol-Codeine #3] Vomiting Physical Examination - Vital Signs Vital Signs: Vital Signs Temp Pulse Pulse Resp BP BP Pulse Ox 01/10/21 07:48 76 01/10/21 07:38 72 01/10/21 07:00 98.0 F 78 18 139/79 94 L 01/10/21 03:26 97.6 F 63 18 102/65 92 L 01/10/21 02:50 63 18 01/09/21 22:37 72 19 130/80 98 01/09/21 19:36 97.6 F 68 18 144/80 95 01/09/21 18:05 71 18 154/97 95 01/09/21 16:36 73 18 155/90 100 01/09/21 15:44 63 18 164/97 99 01/09/21 14:10 98.0 F 73 18 148/97 100 Intake and Output 01/09/21 01/10/21 01/10/21 22:59 06:59 14:59 Other: Voiding Method Toilet Toilet # Voids 1 Weight 68.039 kg GENERAL: The patient is lying in bed and is not in acute distress. CHEST: The heart rate is regular rate rhythm. No murmurs to auscultation. No carotid bruit bilaterally. LUNG: Clear to auscultation bilaterally no wheezing noted throughout. Not labored breathing. ABDOMEN/GI: Bowel sounds present in all 4 quadrants. No tenderness to palpation throughout. NEUROLOGICAL: Higher mental function: The patient is awake, alert, oriented to self, place and time. Patient is following commands. No aphasia and no neglect. Cranial nerves: The pupils are round, equal and reactive to light and a ccommodation. Visual munoz are full to confrontation throughout. Extraocular movement is intact no nystagmus is noted. Facial sensation is normal to touch throughout. The facial strength is normal throughout. Hearing is normal bilaterally to hand rub. Tongue is midline and moved [id number] without any difficulty. No dysarthria is noted. Shoulder shrug is normal bilaterally. Motor: The strength is 5 over 5 throughout. Normal tone and bulk. Cerebellum: Normal finger to nose heel to chin bilaterally. Sensation: Sensation is normal to touch throughout. Reflexes (right/left): 2-3+ bilateral brachioradialis, 3+ patellar while rest are 2+ throughout. Plantars are mute bilaterally. Results Camacho virus is not detected. Quite Liang study: PT of 10.1, INR 0.9, PTT of 24.2. - Laboratory Findings CBC and BMP: 01/10/21 05:39 01/10/21 05:39 Abnormal Lab Findings: Abnormal Labs 01/09/21 01/10/21 01/10/21 14:28 05:39 05:39 WBC 3.79 L RBC 4.05 L MCH 32.1 H Potassium 3.4 L 3.3 L Carbon Dioxide 34 H 32.2 H Magnesium 1.5 L Assessment and Plan Assessment: This is a 50-year-old woman who presented to the emergency department on the year 01/09/2021 for left-sided chest pain going on for the last days rating to the left arm. She is having left forearm/hand and oral tingling. Transient episode of tingling over left forearm/hand as well as oral is likely due to transient ischemic attack. Previous transient ischemic attack (05/2020 with left forearm/hand tingling) Acute chest pain History of pulmonary embolism and is not on any anticoagulation (since was told by costumed character entertainer she does not need to be on it and while processing supervisor notified her she needs to be on it). History of bilateral mastectomies (2015) since precancerous left breast status and family history of breast cancer History of previous GI bleeding (was on ASA) Plan: Patient was given aspirin 324 mg once in the ED, the patient was started on Xarelto 20 mg by the ED team. Will avoid adding aspirin since the patient had GI bleed when she was on aspirin in the past. I'll also avoid any the other antiplatelets for now because of the GI bleed currently she is on Xarelto. Continue Lipitor 40 mg daily at bedtime for secondary stroke prophylaxis. CT of the head: As reported as normal CT brain. No acute intracranial process. I ordered CTA of the head and neck. I also ordered MRI of the brain. If the patient is stable by tomorrow and has not had MRI then she can get as an outpatient. Ordered 2-D echo and lipid panel Ordered every 4 hours neuro checks and continous cardiac monitoring. I consulted physical therapy and occupation therapy I ordered TSH, vitamin B12, folate and vitamin B6 for paresthesia. Cardiology is on board. Plan was discussed with the patient's nurse. Thank you for the consultation. Jeffry Goel M.D. Neuro-hospitalist Time with Patient: Greater than 30
[2021-01-10 12:27] LABS: Cholesterol 146 mg/dL (<200); HDL Cholesterol 75 mg/dL (40-60); LDL Cholesterol,Calculated 56 mg/dL (0-99); Triglycerides 73 mg/dL (<150)
--- NOTE | 2021-01-10 13:15 | P.HPIM ---
History of Present Illness Patient is a pleasant 50-year-old female came in with compensative chest pain he. Which she is pressure-like sensation constant moderate severity has been going on since yesterday. Patient pain is nonpleuritic not associated with f ood. Patient had a CT angios the chest which did not show any pulmonary embolism patient was evaluated by cardiology they cleared her for discharge patient chest pain appears to be musculoskeletal patient was also complaining of chest pain radiating to the left arm with tingling numbness and patient is also complaining of tingling and numbness in the low lower side of the face and inside the mouth because of which I consulted neurology. She denied any weakness or any other tingling numbness anywhere else in the body except those mentioned above. Patient doesn't have any fever chills. Patient had a history of PE in the past was on anticoagulation while the doctors told that she can hold her anticoagulation because of which she is not taking her xarelto. Patient was told in the past that she has a TIA. Patient was evaluated by neurology and the the recommending CT angios and workup for stroke along with MRI of the brain and patient was reinitiated back on Xarelto aspirin neurology and cardiology. Review of Systems REVIEW OF SYSTEMS: CONSTITUTIONAL: No fever, no malaise, no fatigue. HEENT: No recent visual problems or hearing problems. Denied any sore throat. CARDIOVASCULAR: No orthopnea, PND, no palpitations, no syncope. PULMONARY: No shortness of breath, no cough, no hemoptysis. GASTROINTESTINAL: No diarrhea, no nausea, no vomiting, no abdominal pain. NEUROLOGICAL: No headaches, no weakness, no numbness. HEMATOLOGICAL: Denies any bleeding or petechiae. GENITOURINARY: Denies any burning micturition, frequency, or urgency. MUSCULOSKELETAL/RHEUMATOLOGICAL: Denies any joint pain, swelling, or any muscle pain. ENDOCRINE: Denies any polyuria or polydipsia. The rest of the 14-point review of systems is negative. Past Medical History Past Medical History: Asthma, COPD, CVA/TIA, Hyperlipidemia, Hypertension, Pulmonary Embolus (PE), Sleep Apnea/CPAP/BIPAP Additional Past Medical History / Comment(s): PE dx. in May, doesn't use CPAP currently-uses O2 2l @[facility], ?TIA in May-no residual effects other than some intermittent numbness/tingling left arm, "pre-cancerous" cells breast & family hx.-grandmother & aunt History of Any Multi-Drug Resistant Organisms: None Reported Past Surgical History: Breast Surgery, Cholecystectomy, Hernia Repair, Hysterectomy Additional Past Surgical History / Comment(s): prophylactic mastectomy stephanie D/T family hx Past Anesthesia/Blood Transfusion Reactions: No Reported Reaction Past Psychological History: Anxiety, Depression Smoking Status: Former smoker Past Alcohol Use History: None Reported Past Drug Use History: None Reported - Past Family History Mother Additional Family Medical History / Comment(s): had heart valve replacement Medications and Allergies Home Medications Medication Instructions Recorded Confirmed Type ARIPiprazole [Abilify] 5 mg PO DAILY 08/13/20 01/09/21 History Atorvastatin [Lipitor] 40 mg PO HS 08/13/20 01/09/21 History DULoxetine HCL [Cymbalta] 60 mg PO DAILY 08/13/20 01/09/21 History Losartan [Cozaar] 50 mg PO DAILY 08/13/20 01/09/21 History Metoprolol Succinate [Toprol XL] 25 mg PO DAILY 08/13/20 01/09/21 History Umeclidinium [place] [Incruse 1 puff INHALATION RT-DAILY 08/13/20 01/09/21 History Ellipta] busPIRone HCl [Buspar] 10 mg PO BID 08/13/20 01/09/21 History Albuterol Sulfate [Albuterol 1 - 2 puff INHALATION RT-Q6H PRN 09/23/20 01/09/21 History Sulfate Hfa] Gabapentin 600 mg PO BID 09/23/20 01/09/21 History Ipratropium-Albuterol Nebulize 3 ml INHALATION RT-Q6H PRN 09/23/20 01/09/21 History [Duoneb 0.5 mg-3 mg/3 ml Soln] Pantoprazole Sodium [Protonix] 40 mg PO DAILY 09/23/20 01/09/21 History Acetaminophen Tab [Tylenol Tab] 1,000 mg PO Q6HR PRN 01/09/21 01/09/21 History Hyoscyamine Sulfate [Hyoscyamine 0.125 mg SL Q6H PRN 01/09/21 01/09/21 History Sulfate SL] Allergies Allergy/AdvReac Type Severity Reaction Status Date / Time Penicillins Allergy Unknown Verified 01/09/21 16:42 codeine AdvReac Nausea & Verified 01/09/21 16:42 [From Tylenol-Codeine #3] Vomiting Physical Exam Vitals: Vital Signs Temp Pulse Pulse Resp BP BP Pulse Ox 01/10/21 11:46 70 01/10/21 11:37 72 01/10/21 07:48 76 01/10/21 07:38 72 01/10/21 07:00 98.0 F 78 18 139/79 94 L 01/10/21 03:26 97.6 F 63 18 102/65 92 L 01/10/21 02:50 63 18 01/09/21 22:37 72 19 130/80 98 01/09/21 19:36 97.6 F 68 18 144/80 95 01/09/21 18:05 71 18 154/97 95 01/09/21 16:36 73 18 155/90 100 01/09/21 15:44 63 18 164/97 99 01/09/21 14:10 98.0 F 73 18 148/97 100 Intake and Output 01/09/21 01/10/21 01/10/21 22:59 06:59 14:59 Other: Voiding Method Toilet Toilet # Voids 1 2 Weight 68.039 kg PHYSICAL EXAMINATION: GENERAL: The patient is alert and oriented x3, not in any acute distress. Well developed, well nourished. HEENT: Pupils are round and equally reacting to light. EOMI. No scleral icterus. No conjunctival pallor. Normocephalic, atraumatic. No pharyngeal erythema. No thyromegaly. CARDIOVASCULAR: S1 and S2 present. No murmurs, rubs, or gallops. PULMONARY: Chest is clear to auscultation, no wheezing or crackles. ABDOMEN: Soft, nontender, nondistended, normoactive bowel sounds. No palpable organomegaly. MUSCULOSKELETAL: No joint swelling or deformity. EXTREMITIES: No cyanosis, clubbing, or pedal edema. NEUROLOGICAL: Gross neurological examination did not reveal any focal deficits. SKIN: No rashes. Results CBC & Chem 7: 01/10/21 05:39 01/10/21 05:39 Labs: Abnormal Lab Results - Last 24 Hours (Table) 01/09/21 01/10/21 01/10/21 Range/Units 14:28 05:39 05:39 WBC 3.79 L (4.50-10.00) X 10*3/uL RBC 4.05 L (4.10-5.20) X 10*6/uL MCH 32.1 H (27.0-32.0) pg Potassium 3.4 L 3.3 L (3.5-5.1) mmol/L Carbon Dioxide 34 H 32.2 H (22-30) mmol/L Magnesium 1.5 L (1.6-2.3) mg/dL HDL Cholesterol (40-60) mg/dL 01/10/21 Range/Units 05:39 WBC (4.50-10.00) X 10*3/uL RBC (4.10-5.20) X 10*6/uL MCH (27.0-32.0) pg Potassium (3.5-5.1) mmol/L Carbon Dioxide (22-30) mmol/L Magnesium (1.6-2.3) mg/dL HDL Cholesterol 75 H (40-60) mg/dL Thrombosis Risk Factor Assmnt - Choose All That Apply Each Factor Represents 1 point: Abnormal pulmonary function (COPD), Age 41-60 years, Obesity (BMI >25) Other Risk Factors: No Other congenital or acquired thrombophilia - If yes, enter type in comment: No Thrombosis Risk Factor Assessment Total Risk Factor Score: 3 Thrombosis Risk Factor Assessment Level: Moderate Risk Assessment and Plan Plan: -Chest pain rule out acute medicine syndromes patient has [place] skeletal chest pain was cleared by cardiology Tingling and numbness in the left arm as well as inside the mouth: Patient is being worked up for stroke at this time continue with anti-correlation 0 alto in the neurology evaluated the patient. -History of pulmonary embolism for which patient is on anticoagulation her PE was in May 2020. Anti-correlation will be continued until she follows up wit h the PCP as an outpatient -History of bilateral mastectomies for precancerous breast cancer -COPD without any acute exacerbation -hyperlipidemia -Hypertension -Depression For above-mentioned medical problems patient will be resumed on appropriate home medications.
--- NOTE | 2021-01-10 14:53 | CT ---
EXAMINATION TYPE: CT angio head neck DATE OF EXAM: 01/10/2021 COMPARISON: None HISTORY: Lt arm tingling CT DLP: 279 mGycm Automated exposure control for dose reduction was used. CONTRAST: Performed with IV Contrast, patient injected with 65 mL of Isovue 370. Images obtained from the aortic arch to the vertex of the brain with IV contrast and 3-D post process ed images. There is normal branching pattern of the great vessels on the aortic arch. There is bilateral arteria l flow in the subclavian arteries. There is arterial flow in both vertebral arteries. There is arteri al flow in the common internal and external carotid arteries bilaterally. There is wide patency of th e carotid artery bifurcations. There is no evidence of carotid or vertebral artery aneurysm or dissec tion. There is arterial flow in the vertebrobasilar artery system. There is arterial flow in the ante rior middle and posterior cerebral arteries. There is normal contrast opacification of the venous sinuses. I see no sign of intracranial aneurysm or neovascularity. There is no mass effect. There is no evidence of intracranial arterial stenosis. IMPRESSION: Normal CT angiogram of the neck. Normal CT angiogram of the brain.
[2021-01-10 15:05] VITALS: BP 109/70; PULSE 69; RESP 19
--- NOTE | 2021-01-10 15:05 | MR ---
EXAMINATION TYPE: MR brain wo con DATE OF EXAM: 01/10/2021 COMPARISON: None HISTORY: Left arm numbness. Weakness. Multiplanar multiecho imaging of the brain was performed without contrast. Diffusion images show no evidence of an acute infarct. There are multiple foci of increased signal on the FLAIR images at the price-white matter junction of both cerebral hemispheres. These measure up to 10 mm. Total number is approximately 20. Most of these are less than 5 mm. The brainstem is intact. Corpus callosum is intact. Sella turcica is intact. IMPRESSION: No evidence of cortical infarct. White matter signal changes are somewhat peripheral and more likely related to chronic small vessel ischemia.
--- NOTE | 2021-01-10 15:56 | CONS ---
CONSULTATION This is a 50-year-old lady with a history of previous of pulmonary embolism, who sees Dr. Duffy in the outpatient setting. This lady had a transesophageal echo because of a question of some thrombus and that was found to be unremarkable and this procedure was performed sometime in July of last year. She also had a stress test in July which revealed good myocardial perfusion and function and this was a Lexiscan stress test. She comes into the hospital today with complaints of having sharp pain in the chest. The quality of the pain is very atypical, sharp, lasts about 5-10 seconds, comes and goes. Has no obvious precipitating factors. Upon taking a deep breath, sometimes she has discomfort. CT angiogram was performed, was unremarkable. She is resting comfortably without symptoms at the time of my evaluation. PAST MEDICAL HISTORY: Remarkable for bronchial asthma, COPD, hypertension, hyperlipidemia, history of pulmonary embolism on chronic anticoagulation and also sleep apnea syndrome. She is status post bilateral mastectomy, prophylactic, in view of a strong family history and a high risk gene according to the patient. She also had a cholecystectomy, hernia repair and hysterectomy. MEDICATIONS: At home include albuterol inhaler, Protonix, aspirin, and she also takes metoprolol succinate 25 mg daily, losartan 50 mg daily, atorvastatin 40 mg daily. PHYSICAL EXAMINATION: On examination, blood pressure is 140/70, pulse rate is about 68 per minute, regular. HEENT: Unremarkable. Fundus was not examined by me. NECK: Supple. No JVD. I do not hear a carotid bruit. There is no thyromegaly. HEART: Exam reveals S1, S2 heard normally. No rub, murmur or gallop. LUNGS are clear. ABDOMEN is soft, nontender. LOWER EXTREMITIES reveal normal pulses. No edema. CENTRAL NERVOUS SYSTEM is normal. EKG revealed sinus mechanism with a right ventricular conduction delay, no acute changes. Troponin levels are normal. IMPRESSION: 1. Atypical chest pain. 2. History of pulmonary embolism. No evidence of any pulmonary embolism on this admission. 3. History of bilateral mastectomy. 4. History of the chronic obstructive pulmonary disease. 5. RECOMMENDATIONS: Patient's pain is atypical. Her Lexiscan stress test from July is normal and LV function normal by echo. I am recommending that she can be discharged on current medications, follow up with Dr. Duffy in the next 2 weeks. No intervention is necessary at this time. Thank you very much for the consult. ANUJA / LUCIEN: [id number] /
--- NOTE | 2021-01-10 16:20 | P.DS ---
Providers Date of admission: 01/09/21 18:15 Attending physician: Amy Jackson Consults: 01/09/21 18:16 Consult Physician Urgent Consulting Provider: [facility] Consult Reason/Comments: acute chest pain, possible acs Do you want consulting provider notified?: Yes 01/10/21 10:54 Consult Physician Urgent Consulting Provider: Jeffry Goel Consult Reason/Comments: Numbness tingleing left arm and mouth hx of stroke new symptoms Do you want consulting provider notified?: Yes Primary care physician: Amy Jackson Hospital Course: Patient was admitted for chest pain which is musculoskeletal in nature patient had a recent stress test, was evaluated by cardiology cleared by cardiology no further testing or intervention was done from their perspective. Patient rest stress test was in July 2020. Patient was coming of tingling numbness in the left, along with tingling in the mouth on the left side because of which neurology evaluated for stroke evaluation all the stroke workup is negative MRA did show some old the microvascular ischemic changes. Patient the was on 0 alto which was recently stopped as per the recommendation of cardiology and neurology and resuming this is also and patient will follow-up with the Dr. Jackson, PCP in about 3-7 days. For rest of the hospital physician course please refer to my HPI for further details. Patient Condition at Discharge: Stable Plan - Discharge Summary Discharge Rx Participant: No New Discharge Prescriptions: New Rivaroxaban [Xarelto] 20 mg PO W/SUPPER #30 tab Continue Metoprolol Succinate [Toprol XL] 25 mg PO DAILY DULoxetine HCL [Cymbalta] 60 mg PO DAILY Atorvastatin [Lipitor] 40 mg PO HS busPIRone HCl [Buspar] 10 mg PO BID Losartan [Cozaar] 50 mg PO DAILY ARIPiprazole [Abilify] 5 mg PO DAILY Umeclidinium Prosperity [Incruse Ellipta] 1 puff INHALATION RT-DAILY Ipratropium-Albuterol Nebulize [Duoneb 0.5 mg-3 mg/3 ml Soln] 3 ml INHALATION RT-Q6H PRN PRN Reason: Shortness Of Breath Gabapentin 600 mg PO BID Albuterol Sulfate [Albuterol Sulfate Hfa] 1 - 2 puff INHALATION RT-Q6H PRN PRN Reason: Shortness Of Breath Pantoprazole Sodium [Protonix] 40 mg PO DAILY Acetaminophen Tab [Tylenol] 1,000 mg PO Q6HR PRN PRN Reason: Pain Hyoscyamine Sulfate [Hyoscyamine Sulfate SL] 0.125 mg SL Q6H PRN PRN Reason: Pain Discharge Medication List ARIPiprazole [Abilify] 5 mg PO DAILY 08/13/20 [History] Atorvastatin [Lipitor] 40 mg PO HS 08/13/20 [History] DULoxetine HCL [Cymbalta] 60 mg PO DAILY 08/13/20 [History] Losartan [Cozaar] 50 mg PO DAILY 08/13/20 [History] Metoprolol Succinate [Toprol XL] 25 mg PO DAILY 08/13/20 [History] Umeclidinium Prosperity [Incruse Ellipta] 1 puff INHALATION RT-DAILY 08/13/20 [History] busPIRone HCl [Buspar] 10 mg PO BID 08/13/20 [History] Albuterol Sulfate [Albuterol Sulfate Hfa] 1 - 2 puff INHALATION RT-Q6H PRN 09/23/20 [History] Gabapentin 600 mg PO BID 09/23/20 [History] Ipratropium-Albuterol Nebulize [Duoneb 0.5 mg-3 mg/3 ml Soln] 3 ml INHALATION RT-Q6H PRN 09/23/20 [History] Pantoprazole Sodium [Protonix] 40 mg PO DAILY 09/23/20 [History] Acetaminophen Tab [Tylenol] 1,000 mg PO Q6HR PRN 01/09/21 [History] Hyoscyamine Sulfate [Hyoscyamine Sulfate SL] 0.125 mg SL Q6H PRN 01/09/21 [History] Rivaroxaban [Xarelto] 20 mg PO W/SUPPER #30 tab 01/10/21 [Rx] Follow up Appointment(s)/Referral(s): Amy Jackson MD [Primary Care Provider] - 3 Days
--- NOTE | 2021-01-11 08:49 | ECHOF ---
Referral Reason:stroke MEASUREMENTS -------- HEIGHT: 157.5 cm WEIGHT: 68.0 kg BP: RVIDd: 3.2 cm (< 3.3) IVSd: 0.9 cm (0.6 - 1.1) LVIDd: 4.9 cm (3.9 - 5.3) LVPWd: 1.1 cm (0.6 - 1.1) IVSs: 1.3 cm LVIDs: 3.3 cm LVPWs: 1.3 cm LA Diam: 3.8 cm (2.7 - 3.8) Ao Diam: 2.5 cm (2.0 - 3.7) AV Cusp: 2.0 cm (1.5 - 2.6) MV EXCURSION: 18.395 mm (> 18.000) MV EF SLOPE: 62 mm/s (70 - 150) EPSS: 0.4 cm MV E Ted: 0.54 m/s MV DecT: 239 ms MV A Ted: 0.68 m/s MV E/A Ratio: 0.79 RAP: 5.00 mmHg RVSP: 18.79 mmHg FINDINGS -------- Sinus rhythm. This was a technically good study. LV size, wall thickness and systolic function are normal, with an EF greater than 55%. The left carmen tricular size is normal. The right ventricle is normal in size. Normal LA size by volume 22+/-6 ml/m2. The right atrial size is normal. The aortic valve is trileaflet, and appears structurally normal. No aortic stenosis or regurgitation. There is trace mitral regurgitation. Trace tricuspid regurgitation present. Right ventricular systolic pressure is normal at < 35 mmHg. There is no pulmonic regurgitation present. The aortic root size is normal. There is no pericardial effusion. CONCLUSIONS -------- 1. LV size, wall thickness and systolic function are normal, with an EF greater than 55%. 2. The left ventricular size is normal. 3. The right ventricle is normal in size. 4. Normal LA size by volume 22+/-6 ml/m2. 5. The right atrial size is normal. 6. The aortic valve is trileaflet, and appears structurally normal. No aortic stenosis or regurgitati on. 7. There is trace mitral regurgitation. 8. Trace tricuspid regurgitation present. 9. The aortic root size is normal. 10. There is no pericardial effusion. INSPECTOR FILTERS: Lisa Ma RDCS
== END 2021-01-10 16:45 | disposition home or self-care (01) ==
LOC: EC 14:04 → 6NMEDSUR 18:15
PROVIDERS: ADMIT Internal Medicine; ATTEND Internal Medicine
DX: R07.89 Other chest pain (principal); E78.5 Hyperlipidemia, unspecified; J44.9 Chronic obstructive pulmonary disease, unspecified; I10 Essential (primary) hypertension; F32.9 Major depressive disorder, single episode, unspecified; F41.9 Anxiety disorder, unspecified; R94.31 Abnormal electrocardiogram [ECG] [EKG]; Z79.01 Long term (current) use of anticoagulants; Z79.899 Other long term (current) drug therapy; Z80.3 Family history of malignant neoplasm of breast; Z85.3 Personal history of malignant neoplasm of breast; Z86.711 Personal history of pulmonary embolism; Z86.73 Personal history of transient ischemic attack (TIA), and cerebral infarction without residual deficits; Z87.891 Personal history of nicotine dependence; Z90.13 Acquired absence of bilateral breasts and nipples; Z90.710 Acquired absence of both cervix and uterus; Z20.822 Contact with and (suspected) exposure to COVID-19
CPT/HCPCS: 96376 ×2; 96375; 93005 ×2; 96374; 99285; 36415; 94640 ×2; 93306; 84207; 82747; 80061; 80053; 80048; 84443; 82607; 83735; 84484; 85025 ×2; 85610; 85730; 87635; 71046; 70496; 70450; 70498; 71275; 70551; G0378 ×2; J2270 ×2; J1885; Q9967 ×2

== ENCOUNTER 2021-05-02 08:22 | Emergency (ER) | payer OTHER ==
[2021-05-02] MEDS ORDERED: SODIUM CHLORIDE 0.9% 1,000 ML IV STA (08:38)
[2021-05-02] MEDS ORDERED: ONDANSETRON 4 MG/2 ML VIAL IVP STA (08:38)
[2021-05-02] MEDS ORDERED: KETOROLAC 15 MG/ML 1 ML VIAL IVP STA (08:39)
--- NOTE | 2021-05-02 08:47 | ED ---
Nausea/Vomiting/Diarrhea HPI - General Chief complaint: Nausea/Vomiting/Diarrhea Stated complaint: N/V/D, sorethroat Time Seen by Provider: 05/02/21 08:29 Source: patient Mode of arrival: ambulatory Limitations: no limitations - History of Present Illness Initial comments: 50 year-old female patient presents to the emergency department for evaluation of vomiting, diarrhea, and upper respiratory symptoms. Patient states that about a week ago was having lower dental pain, then 3-4 days ago she started having sore throat, nasal congestion, and cough. Saw her physician and was prescribed z-jillian and steroids. States that last night started having vomiting and watery diarrhea. States she has been chilled but denies fever. Denies any abdominal pain. Denies chest pain. Reports mild shortness of breath. Denies taking any medications for symptom relief. Reports history of COPD. Denies any sick contacts or recent travel. Did have moderna COVID vaccine in November. Patient denies any recent rash, abdominal pain, back pain, numbness, tingling, dizziness , weakness, hematuria, dysuria, urinary urgency, urinary frequency, headache, visual changes, or any other complaints. - Related Data Home Medications Medication Instructions Recorded Confirmed ARIPiprazole [Abilify] 5 mg PO DAILY 08/13/20 01/09/21 Atorvastatin [Lipitor] 40 mg PO HS 08/13/20 01/09/21 DULoxetine HCL [Cymbalta] 60 mg PO DAILY 08/13/20 01/09/21 Losartan [Cozaar] 50 mg PO DAILY 08/13/20 01/09/21 Metoprolol Succinate [Toprol XL] 25 mg PO DAILY 08/13/20 01/09/21 Umeclidinium Icard [Incruse 1 puff INHALATION RT-DAILY 08/13/20 01/09/21 Ellipta] busPIRone HCl [Buspar] 10 mg PO BID 08/13/20 01/09/21 Albuterol Sulfate [Albuterol 1 - 2 puff INHALATION RT-Q6H PRN 09/23/20 01/09/21 Sulfate Hfa] Gabapentin 600 mg PO BID 09/23/20 01/09/21 Ipratropium-Albuterol Nebulize 3 ml INHALATION RT-Q6H PRN 09/23/20 01/09/21 [Duoneb 0.5 mg-3 mg/3 ml Soln] Pantoprazole Sodium [Protonix] 40 mg PO DAILY 09/23/20 01/09/21 Acetaminophen Tab [Tylenol] 1,000 mg PO Q6HR PRN 01/09/21 01/09/21 Hyoscyamine Sulfate [Hyoscyamine 0.125 mg SL Q6H PRN 01/09/21 01/09/21 Sulfate SL] Previous Rx's Medication Instructions Recorded Rivaroxaban [Xarelto] 20 mg PO W/SUPPER #30 tab 01/10/21 Dicyclomine [Bentyl] 20 mg PO QID #12 tablet 05/02/21 Ondansetron [Zofran ODT] 4 mg PO Q8HR PRN #10 tab 05/02/21 Allergies Allergy/AdvReac Type Severity Reaction Status Date / Time Penicillins Allergy Unknown Verified 05/02/21 08:23 codeine AdvReac Nausea & Verified 05/02/21 08:23 [From Tylenol-Codeine #3] Vomiting Review of Systems ROS Statement: Those systems with pertinent positive or pertinent negative responses have been documented in the HPI. ROS Other: All systems not noted in ROS Statement are negative. Past Medical History Past Medical History: Asthma, COPD, CVA/TIA, Hyperlipidemia, Hypertension, Pulmonary Embolus (PE), Sleep Apnea/CPAP/BIPAP Additional Past Medical History / Comment(s): PE dx. in May, doesn't use CPAP currently-uses O2 2l @[facility], ?TIA in May-no residual effects other than some intermittent numbness/tingling left arm, "pre-cancerous" cells breast & family hx.-grandmother & aunt History of Any Multi-Drug Resistant Organisms: None Reported Past Surgical History: Breast Surgery, Cholecystectomy, Hernia Repair, Hysterectomy Additional Past Surgical History / Comment(s): prophylactic mastectomy stephanie D/T family hx Past Anesthesia/Blood Transfusion Reactions: No Reported Reaction Past Psychological History: Anxiety, Depression Smoking Status: Former smoker Past Alcohol Use History: None Reported Past Drug Use History: None Reported - Past Family History Mother Additional Family Medical History / Comment(s): had heart valve replacement General Exam Limitations: no limitations General appearance: alert, in no apparent distress, other (This is a well- developed, well-nourished adult female patient in no acute distress. Vital signs upon presentation temperature 97.3F, pulse 108, respirations 20, blood pressure 150/91, pulse ox 95% on room air.) Eye exam: Present: normal appearance, PERRL, EOMI. Absent: scleral icterus, conjunctival injection, periorbital swelling ENT exam: Present: normal exam, normal oropharynx, mucous membranes moist, other (No evidence of dental abscess) Respiratory exam: Present: normal lung sounds bilaterally. Absent: respiratory distress, wheezes, rales, rhonchi, stridor Cardiovascular Exam: Present: regular rate, normal rhythm, normal heart sounds. Absent: systolic murmur, diastolic murmur, rubs, gallop, clicks GI/Abdominal exam: Present: soft, normal bowel sounds. Absent: distended, tenderness, guarding, rebound, rigid Neurological exam: Present: alert, oriented X3, CN II-XII intact Psychiatric exam: Present: normal affect, normal mood Skin exam: Present: warm, dry, intact, normal color. Absent: rash Course Vital Signs 05/02/21 05/02/21 05/02/21 08:23 09:33 09:55 Temperature 97.3 F L Pulse Rate 108 H 79 81 Respiratory 20 22 Rate Blood Pressure 150/91 124/74 O2 Sat by Pulse 95 94 L Oximetry 05/02/21 10:07 Temperature Pulse Rate 91 Respiratory Rate Blood Pressure O2 Sat by Pulse Oximetry Medical Decision Making - Medical Decision Making 50-year-old male patient presented for multiple complaints including cough, sore throat, vomiting, diarrhea. Physical examination did reveal soft nontender abdomen. She is afebrile, vital signs. Labs reviewed and did reveal decreased potassium and magnesium. We did replace these orally. I did discuss findings a nd results with her. She be discharged with prescription for Bentyl and Zofran. She is instructed to follow-up with her primary care physician have repeat electrolytes drawn. Return parameters were discussed in detail. She verbalizes understanding and agrees with this plan. My attending is Dr. Dubose. - Lab Data Result diagrams: 05/02/21 08:42 05/02/21 08:42 Lab Results 05/02/21 05/02/21 05/02/21 Range/Units 08:42 08:42 08:42 WBC 8.1 (3.8-10.6) k/uL RBC 4.54 (3.80-5.40) m/uL Hgb 14.7 (11.4-16.0) gm/dL Hct 41.3 (34.0-46.0) % MCV 91.1 (80.0-100.0) fL MCH 32.4 (25.0-35.0) pg MCHC 35.6 (31.0-37.0) g/dL RDW 13.0 (11.5-15.5) % Plt Count 288 (150-450) k/uL MPV 7.0 Neutrophils % 79 % Lymphocytes % 13 % Monocytes % 5 % Eosinophils % 2 % Basophils % 1 % Neutrophils # 6.4 (1.3-7.7) k/uL Lymphocytes # 1.1 (1.0-4.8) k/uL Monocytes # 0.4 (0-1.0) k/uL Eosinophils # 0.2 (0-0.7) k/uL Basophils # 0.1 (0-0.2) k/uL Sodium 140 (137-145) mmol/L Potassium 3.2 L (3.5-5.1) mmol/L Chloride 99 (98-107) mmol/L Carbon Dioxide 31 H (22-30) mmol/L Anion Gap 10 mmol/L BUN 3 L (7-17) mg/dL Creatinine 0.61 (0.52-1.04) mg/dL Est GFR (CKD-EPI)AfAm >90 (>60 ml/min/1.73 sqM) Est GFR (CKD-EPI)NonAf >90 (>60 ml/min/1.73 sqM) Glucose 123 H (74-99) mg/dL Calcium 9.2 (8.4-10.2) mg/dL Magnesium (1.6-2.3) mg/dL Total Bilirubin 0.8 (0.2-1.3) mg/dL AST 28 (14-36) U/L ALT 22 (4-34) U/L Alkaline Phosphatase 114 (38-126) U/L Total Protein 7.2 (6.3-8.2) g/dL Albumin 4.4 (3.5-5.0) g/dL Lipase 180 (23-300) U/L Urine Color Yellow Urine Appearance Clear (Clear) Urine pH 7.0 (5.0-8.0) Ur Specific [place] 1.010 (1.001-1.035) Urine Protein Negative (Negative) Urine Glucose (UA) Negative (Negative) Urine Ketones Negative (Negative) Urine Blood Negative (Negative) Urine Nitrite Negative (Negative) Urine Bilirubin Negative (Negative) Urine Urobilinogen 2.0 (<2.0) mg/dL Ur Leukocyte Esterase Negative (Negative) Coronavirus (PCR) (Not Detectd) 05/02/21 05/02/21 Range/Units 08:42 08:42 WBC (3.8-10.6) k/uL RBC (3.80-5.40) m/uL Hgb (11.4-16.0) gm/dL Hct (34.0-46.0) % MCV (80.0-100.0) fL MCH (25.0-35.0) pg MCHC (31.0-37.0) g/dL RDW (11.5-15.5) % Plt Count (150-450) k/uL MPV Neutrophils % % Lymphocytes % % Monocytes % % Eosinophils % % Basophils % % Neutrophils # (1.3-7.7) k/uL Lymphocytes # (1.0-4.8) k/uL Monocytes # (0-1.0) k/uL Eosinophils # (0-0.7) k/uL Basophils # (0-0.2) k/uL Sodium (137-145) mmol/L Potassium (3.5-5.1) mmol/L Chloride (98-107) mmol/L Carbon Dioxide (22-30) mmol/L Anion Gap mmol/L BUN (7-17) mg/dL Creatinine (0.52-1.04) mg/dL Est GFR (CKD-EPI)AfAm (>60 ml/min/1.73 sqM) Est GFR (CKD-EPI)NonAf (>60 ml/min/1.73 sqM) Glucose (74-99) mg/dL Calcium (8.4-10.2) mg/dL Magnesium 1.4 L (1.6-2.3) mg/dL Total Bilirubin (0.2-1.3) mg/dL AST (14-36) U/L ALT (4-34) U/L Alkaline Phosphatase (38-126) U/L Total Protein (6.3-8.2) g/dL Albumin (3.5-5.0) g/dL Lipase (23-300) U/L Urine Color Urine Appearance (Clear) Urine pH (5.0-8.0) Ur Specific [place] (1.001-1.035) Urine Protein (Negative) Urine Glucose (UA) (Negative) Urine Ketones (Negative) Urine Blood (Negative) Urine Nitrite (Negative) Urine Bilirubin (Negative) Urine Urobilinogen (<2.0) mg/dL Ur Leukocyte Esterase (Negative) Coronavirus (PCR) Not Detected (Not Detectd) - Radiology Data Radiology results: report reviewed, image reviewed Two-view x-ray of the chest is obtained. There are no acute abnormalities noted. Disposition Clinical Impression: Viral upper respiratory illness, Vomiting and diarrhea Disposition: HOME SELF-CARE Condition: Good Instructions (If sedation given, give patient instructions): Upper Respiratory Infection (ED), Acute Nausea and Vomiting (ED), Acute Diarrhea (ED) Additional Instructions: Take medications as directed. Follow up with your primary care physician for recheck in 1-2 days. Have repeat electrolytes drawn. Return for any new, worsening, or concerning symptoms. Prescriptions: Dicyclomine [Bentyl] 20 mg PO QID #12 tablet Ondansetron [Zofran ODT] 4 mg PO Q8HR PRN #10 tab PRN Reason: Nausea Is patient prescribed a controlled substance at d/c from ED?: No Referrals: Amy Jackson MD [Primary Care Provider] - 1-2 days Time of Disposition: 12:04
[2021-05-02] MEDS ORDERED: MORPHINE SULFATE 2 MG/ML SYRINGE IVP STA (08:52)
[2021-05-02 08:57] LABS: Basophils # (A) 0.1 k/uL (0-0.2); Basophils % (A) 1 %; Eosinophils # (A) 0.2 k/uL (0-0.7); Eosinophils % (A) 2 %; HCT 41.3 % (34.0-46.0); HGB 14.7 gm/dL (11.4-16.0); Lymphocytes # (A) 1.1 k/uL (1.0-4.8); Lymphocytes % (A) 13 %; MCH 32.4 pg (25.0-35.0); MCHC 35.6 g/dL (31.0-37.0); MCV 91.1 fL (80.0-100.0); Monocytes # (A) 0.4 k/uL (0-1.0); Monocytes % (A) 5 %; Neutrophils # (A) 6.4 k/uL (1.3-7.7); Neutrophils % (A) 79 %; Platelet Count 288 k/uL (150-450); RBC 4.54 m/uL (3.80-5.40); WBC 8.1 k/uL (3.8-10.6)
[2021-05-02 09:10] LABS: ALT 22 U/L (4-34); AST 28 U/L (14-36); African American GFR (CKD) >90 (>60 ml/min/1.73 sqM); Albumin 4.4 g/dL (3.5-5.0); Alkaline Phosphatase 114 U/L (38-126); Anion Gap 10 mmol/L; Blood Urea Nitrogen 3 mg/dL (7-17); Calcium 9.2 mg/dL (8.4-10.2); Carbon Dioxide 31 mmol/L (22-30); Chloride 99 mmol/L (98-107); Glucose 123 mg/dL (74-99); Lipase 180 U/L (23-300); Non-African American GFR(CKD) >90 (>60 ml/min/1.73 sqM); Potassium 3.2 mmol/L (3.5-5.1); Sodium 140 mmol/L (137-145); Total Bilirubin 0.8 mg/dL (0.2-1.3); Total Protein 7.2 g/dL (6.3-8.2)
--- NOTE | 2021-05-02 09:36 | XR ---
EXAMINATION TYPE: XR chest 2V DATE OF EXAM: 05/02/2021 COMPARISON: 01/09/2021 HISTORY: Chest pain TECHNIQUE: Frontal and lateral views of the chest are obtained. FINDINGS AND IMPRESSION: No focal airspace disease, pneumothorax or pleural effusion. Minimal subsegmental bibasilar atelectatic changes. No pneumothorax or pleural effusion. Cardiomediastinal silhouette within normal limits. Surgical rashad over the chest wall again demonstrated. Generalized osteopenia, no acute fracture or dislocation.
[2021-05-02] MEDS ORDERED: POTASSIUM CHLORIDE ER 20 MEQ TAB.ER PO STA (09:39)
[2021-05-02] MEDS ORDERED: IPRATROPIUM-ALBUTEROL 3 ML NEB INHALATION STA (09:39)
[2021-05-02] MEDS ORDERED: guaiFENesin-DM 600/30MG 1 EACH TAB.ER.12H PO STA (09:39)
[2021-05-02] MEDS ORDERED: FAMOTIDINE 20 MG/2 ML VIAL IV STA (09:39)
[2021-05-02] MEDS ORDERED: MAGNESIUM OXIDE 400 MG TAB PO STA (10:53)
[2021-05-02] MEDS ORDERED: DICYCLOMINE 10 MG/ML 2 ML AMP IM STA (11:19)
[2021-05-02 11:44] LABS: Appearance,Urine Clear (Clear); Bilirubin,Urine Negative (Negative); Blood,Urine Negative (Negative); Color,Urine Yellow; Glucose,Urine (UA) Negative (Negative); Ketones,Urine Negative (Negative); Leukocyte Esterase,Urine Negative (Negative); Nitrite,Urine Negative (Negative); Protein,Urine Negative (Negative)
[2021-05-02] MEDS ORDERED: methylPREDNISolone SOD SUCCI 125 MG/2 ML VIAL IV STA (12:04)
[2021-05-02 12:49] VITALS: BP 121/70; PULSE 75; RESP 18; TEMP 98.2
== END 2021-05-02 12:48 | disposition home or self-care (01) ==
LOC: EC 08:22
DX: J06.9 Acute upper respiratory infection, unspecified (principal); R11.2 Nausea with vomiting, unspecified; R19.7 Diarrhea, unspecified; I10 Essential (primary) hypertension; E78.5 Hyperlipidemia, unspecified; J44.9 Chronic obstructive pulmonary disease, unspecified; F32.9 Major depressive disorder, single episode, unspecified; F41.9 Anxiety disorder, unspecified; Z86.711 Personal history of pulmonary embolism; Z79.51 Long term (current) use of inhaled steroids; Z79.899 Other long term (current) drug therapy; Z88.0 Allergy status to penicillin; Z88.5 Allergy status to narcotic agent; Z87.891 Personal history of nicotine dependence
CPT/HCPCS: 36415; 94640; 80053; 83690; 83735; 85025; 81003; 87635; 71046; 96374; 96375 ×3; 96361 ×4; 96372; 99284; J0500; J2930; J2405; J2270

== ENCOUNTER → 2021-06-04 | Outpatient (CLI) | payer OTHER ==
--- NOTE | 2021-06-04 11:52 | CT ---
EXAMINATION TYPE: CT chest angio for PE DATE OF EXAM: 06/04/2021 COMPARISON: 01/09/2021 HISTORY: Shortness of breath CT DLP: 503 mGycm Automated exposure control for dose reduction was used. CONTRAST: CT Chest for pulmonary embolism performed patient injected with 100 mL of Isovue 370. FINDINGS: LUNGS: Within the right upper lobe anterior segment there is patchy subsegmental consolidation. Perib ronchial wall thickening is seen bilaterally. Mild hyperinflation with biapical pleural thickening. N o pneumothorax or pleural effusion. There is an 9 mm superior segment left lower lobe pulmonary nodul e retrospectively stable from prior exam of 11/18/2020 MEDIASTINUM: There is satisfactory enhancement of the pulmonary artery and its branches, there is no CT evidence for pulmonary embolism. There are no greater than 1 cm hilar or mediastinal lymph nodes. Aorta of normal caliber. OTHER: Hypertrophic and degenerative changes of the spine. Bilateral breast surgery noted. Indetermi sumeet 1.2 cm left splenic lesion stable from prior exam and unchanged from 2018 IMPRESSION: 1. No diagnostic evidence of pulmonary embolism. There is an 9 mm left lower lobe pulmonary nodule s table from 11/18/2020. But new from the exam of 08/10/2013. Correlate clinically. Underlying malignanc y not excluded. Consider PET scan. 2. Vague area of patchy infiltrate right upper lobe correlate for early pneumonitis or infiltrate. Bi lateral peribronchial thickening is seen within both lungs could be associated with chronic bronchiti s and/or bronchiectasis.
== END | disposition home or self-care (01) ==
LOC: RADCTMAIN 11:08
PROVIDERS: ATTEND Internal Medicine
DX: J47.9 Bronchiectasis, uncomplicated (principal)
CPT/HCPCS: 71275; Q9967

== ENCOUNTER 2021-07-27 15:10 | Inpatient (IN) | payer OTHER ==
[2021-07-27] MEDS ORDERED: ONDANSETRON 4 MG/2 ML VIAL IVP STA (16:14)
[2021-07-27] MEDS ORDERED: PROCHLORPERAZINE INJ 10 MG/2 ML VIAL IVP STA (16:20)
[2021-07-27] MEDS ORDERED: SODIUM CHLORIDE 0.9% 1,000 ML IV ONE (16:20)
[2021-07-27] MEDS ORDERED: diphenhydrAMINE 50 MG/ML 1 ML VIAL IVP STA (16:20)
[2021-07-27 16:27] LABS: Glucose,Whole Blood 96 mg/dL (75-99)
--- NOTE | 2021-07-27 16:48 | CT ---
EXAMINATION TYPE: CT brain wo con for TPA DATE OF EXAM: 07/27/2021 COMPARISON: CT brain January 10, 2021 HISTORY: Right sided weakness. Acute onset neuro deficit. CT DLP: 1132.8 mGycm. Automated Exposure Control for Dose Reduction was Utilized. TECHNIQUE: CT scan of the head is performed without contrast. FINDINGS: There is no acute intracranial hemorrhage, mass effect, or midline shift identified. The ventricles and sulci are within normal limits in size for patient's age. Prominent CSF in the lunchroom aide ior central aspect posterior fossa could reflect andrew cisterna magna or arachnoid cyst unchanged from prior. The globes are intact and the visualized sinuses are clear. IMPRESSION: No acute intracranial hemorrhage or midline shift is seen. No significant change from pr ior.
[2021-07-27 16:55] LABS: Basophils % (A) 1 %; Eosinophils # (A) 0.1 k/uL (0-0.7); Eosinophils % (A) 2 %; HCT 46.2 % (34.0-46.0); HGB 15.4 gm/dL (11.4-16.0); Lymphocytes # (A) 1.8 k/uL (1.0-4.8); Lymphocytes % (A) 25 %; MCH 31.8 pg (25.0-35.0); MCHC 33.4 g/dL (31.0-37.0); Mean Platelet Volume 7.9; Monocytes # (A) 0.5 k/uL (0-1.0); Monocytes % (A) 7 %; Neutrophils # (A) 4.7 k/uL (1.3-7.7); Neutrophils % (A) 64 %; Platelet Count 306 k/uL (150-450); RBC 4.86 m/uL (3.80-5.40); RDW 12.6 % (11.5-15.5); WBC 7.3 k/uL (3.8-10.6)
[2021-07-27 17:04] LABS: INR 1.5 (<1.2); Partial Thromboplastin Time 35.5 sec (22.0-30.0); Prothrombin Time 14.7 sec (9.0-12.0)
--- NOTE | 2021-07-27 17:49 | CT ---
EXAMINATION TYPE: CT angio head neck DATE OF EXAM: 07/27/2021 HISTORY: Right sided weakness. COMPARISON: CTA 01/10/21 Total DLP: 385.6 mGycm. Automated Exposure Control for Dose Reduction was Utilized. TECHNIQUE: CTA scan of the neck is performed with IV Contrast, patient injected with 65 mL of Isovue 370, axial images are obtained, coronal and sagittal reformatted images are reviewed. 3D reconstruct ed images are created on an independent workstation and reviewed. FINDINGS: Carotid/Vascular Structures: Three-vessel aortic arch. Unremarkable extracranial vertebral and carotid arteries. Tiny outpouching at the inferior aspect of the right carotid terminus. The distal vertebral arteries are unremarkable. Anterior, middle and posterior cerebral arteries are patent. The basilar artery is patent. The dural venous sinuses and cerebral veins are patent. Other: Degenerative changes of the cervical spine. IMPRESSION: 1. No large vessel occlusion or hemodynamically significant stenosis in the head or neck. 2. A tiny outpouching at the inferior aspect of the right carotid terminus could relate to an infund ibulum versus a tiny, 2mm aneurysm. NASCET criteria was used in interpretation of this exam?
[2021-07-27 17:52] LABS: ALT 29 U/L (4-34); AST 36 U/L (14-36); African American GFR (CKD) >90 (>60 ml/min/1.73 sqM); Albumin 3.6 g/dL (3.5-5.0); Alkaline Phosphatase 100 U/L (38-126); Anion Gap 6 mmol/L; Blood Urea Nitrogen 8 mg/dL (7-17); Calcium 8.4 mg/dL (8.4-10.2); Carbon Dioxide 30 mmol/L (22-30); Chloride 101 mmol/L (98-107); Glucose 95 mg/dL (74-99); Non-African American GFR(CKD) >90 (>60 ml/min/1.73 sqM); Potassium 2.9 mmol/L (3.5-5.1); Sodium 137 mmol/L (137-145); Total Bilirubin 0.7 mg/dL (0.2-1.3); Total Protein 6.2 g/dL (6.3-8.2)
[2021-07-27] MEDS ORDERED: ASPIRIN 325 MG TAB PO STA (17:56)
[2021-07-27] MEDS ORDERED: MORPHINE SULFATE 4 MG/ML SYRINGE IVP STA (17:56)
[2021-07-27] MEDS ORDERED: KETOROLAC 15 MG/ML 1 ML VIAL IVP STA (17:56)
[2021-07-27] MEDS ORDERED: POTASSIUM CHLORIDE ER 20 MEQ TAB.ER PO STA (17:57)
--- NOTE | 2021-07-27 18:16 | XR ---
EXAMINATION TYPE: XR chest 2V DATE OF EXAM: 07/27/2021 COMPARISON: Chest radiograph the 2020 HISTORY: Altered mental status TECHNIQUE: Frontal and lateral views of the chest are obtained. FINDINGS: There is no focal air space opacity, pleural effusion, or pneumothorax seen. The cardiac silhouette size is within normal limits. The osseous structures are intact. Metallic clips and sutures over the chest related to prior. IMPRESSION: No acute cardiopulmonary process.
[2021-07-27] MEDS ORDERED: ONDANSETRON 4 MG/2 ML VIAL IVP PRN (19:22)
[2021-07-27] MEDS ORDERED: NALOXONE 0.4 MG/ML 1 ML VIAL IV PRN (19:22)
--- NOTE | 2021-07-27 21:50 | ED ---
General Adult HPI - General Chief complaint: Neuro Symptoms/Deficit Stated complaint: headache, right arm & tongue numbness Time Seen by Provider: 07/27/21 16:00 Source: patient, RN notes reviewed, old records reviewed Mode of arrival: ambulatory Limitations: no limitations - History of Present Illness Initial comments: I evaluated the patient when she was placed in a room which was approximately 40 minutes after arrival. She presents emergency department over concern for TIA or stroke. Patient has a history of TIAs and strokes. She is complaining that since 9 AM this morning, she has been having right-sided facial numbness as well as right arm numbness and tingling. States she had some mild right foot numbness that comes and goes as well. Denies any left-sided deficits. Denies any weakness. Endorses some mild tongue numbness as well. Denies any chest pain, shortness breath, abdominal pain, nausea, vomiting. Endorses a bilateral tension-like headache that is not the worse headache of her life. She is not on blood thinners. Denies any trauma. She states that this is somewhat similar to prior episode when she was diagnosed with a TIA. Last known well was 9 AM this morning. She denies any fevers, chills, cough. Has no known sick contacts. Patient presents over her strokelike symptoms. No history of intracranial trauma or hemorrhage. - Related Data Home Medications Medication Instructions Recorded Confirmed Atorvastatin [Lipitor] 40 mg PO HS 08/13/20 07/27/21 DULoxetine HCL [Cymbalta] 60 mg PO DAILY 08/13/20 07/27/21 Metoprolol Succinate [Toprol XL] 25 mg PO DAILY 08/13/20 07/27/21 Albuterol Sulfate [Albuterol 1 - 2 puff INHALATION RT-Q6H PRN 09/23/20 07/27/21 Sulfate Hfa] Gabapentin 600 mg PO BID 09/23/20 07/27/21 Pantoprazole Sodium [Protonix] 40 mg PO BID 09/23/20 07/27/21 Acetaminophen Tab [Tylenol] 1,000 mg PO Q6H PRN 01/09/21 07/27/21 Clindamycin HCl 300 mg PO Q8H 07/27/21 07/27/21 Losartan Potassium 100 mg PO DAILY 07/27/21 07/27/21 Sucralfate [Carafate] 1 gm PO BID PRN 07/27/21 07/27/21 Tiotropium 2.5 Mcg/Puff [Spiriva 2 puff INHALATION RT-DAILY 07/27/21 07/27/21 Respimat 2.5 Mcg] Tobra-Dexamet 0.3-0.1% Eye Glenna 1 drop BOTH EYES BID 07/27/21 07/27/21 [Tobradex Ophth Susp] busPIRone HCL 15 mg PO BID 07/27/21 07/27/21 Previous Rx's Medication Instructions Recorded Rivaroxaban [Xarelto] 20 mg PO W/SUPPER #30 tab 01/10/21 Allergies Allergy/AdvReac Type Severity Reaction Status Date / Time Penicillins Allergy Unknown Verified 07/27/21 18:34 codeine AdvReac Nausea & Verified 07/27/21 18:34 [From Tylenol-Codeine #3] Vomiting Review of Systems ROS Statement: Those systems with pertinent positive or pertinent negative responses have been documented in the HPI. Review of Systems: CONST: Denies fever EYES: Denies blurry vision ENT: Denies nasal congestion C/V: Denies Chest pain RESP: Denies shortness of breath GI: Denies abdominal pain : Denies dysuria SKIN: Denies rash. MSK: Denies joint pain. NEURO: Endorses headache, paresthesias ROS Other: All systems not noted in ROS Statement are negative. Past Medical History Past Medical History: Asthma, COPD, CVA/TIA, Hyperlipidemia, Hypertension, Pulmonary Embolus (PE), Sleep Apnea/CPAP/BIPAP Additional Past Medical History / Comment(s): PE dx. in May, doesn't use CPAP currently-uses O2 2l @[facility], ?TIA in May-no residual effects other than some intermittent numbness/tingling left arm, "pre-cancerous" cells breast & family hx.-grandmother & aunt History of Any Multi-Drug Resistant Organisms: None Reported Past Surgical History: Breast Surgery, Cholecystectomy, Hernia Repair, Hy sterectomy Additional Past Surgical History / Comment(s): prophylactic mastectomy stephanie D/T family hx Past Anesthesia/Blood Transfusion Reactions: No Reported Reaction Past Psychological History: Anxiety, Depression Smoking Status: Former smoker Past Alcohol Use History: None Reported Past Drug Use History: None Reported - Past Family History Mother Additional Family Medical History / Comment(s): had heart valve replacement General Exam - General Exam Comments Initial Comments: General: Appears in mild distress secondary to her current symptoms. HEAD: Normal with no signs of head trauma. EYES: PERRLA, EOMI, conjunctiva normal, no discharge. Pupils are 3 mm and equal bilaterally. ENT: Hearing grossly intact, normal oropharynx. RESPIRATORY: Clear breath sounds bilaterally. No wheezes, rales, or rhonchi. C/V: Regular rate and rhythm. S1 and S2 auscultated, no edema, peripheral pulses 2+ and intact throughout ABD: Abd is soft, nontender, nondistended EXT: Normal range of motion, no obvious deformity SKIN: No rashes or lesions observed on exposed skin. NEURO: Alert and oriented 4. Cranial nerves II through XII are intact. No focal strength deficits. NIH stroke scale is 1 for decreased sensation to light touch in the right face and right upper extremity. This is in the left MCA distribution. GCS is 15. Limitations: no limitations Course Vital Signs 07/27/21 07/27/21 07/27/21 15:48 16:15 16:30 Temperature 98.2 F Pulse Rate 85 82 80 Respiratory 18 22 20 Rate Blood Pressure 141/88 145/88 130/97 O2 Sat by Pulse 98 96 96 Oximetry 07/27/21 07/27/21 07/27/21 16:45 17:00 17:15 Temperature Pulse Rate 84 76 82 Respiratory 18 18 18 Rate Blood Pressure 141/81 139/82 138/92 O2 Sat by Pulse 99 99 99 Oximetry 07/27/21 07/27/21 07/27/21 17:30 17:45 18:00 Temperature Pulse Rate 80 78 74 Respiratory 18 18 18 Rate Blood Pressure 121/80 128/81 130/72 O2 Sat by Pulse 98 99 Oximetry 07/27/21 07/27/21 07/27/21 19:00 20:00 21:00 Temperature Pulse Rate 82 76 78 Respiratory 18 20 18 Rate Blood Pressure 120/76 122/80 118/78 O2 Sat by Pulse Oximetry 07/27/21 22:00 Temperature Pulse Rate 74 Respiratory 18 Rate Blood Pressure 115/72 O2 Sat by Pulse Oximetry Medical Decision Making - Medical Decision Making Based on the patient's presentation and physical exam, I'm concerned for possible acute stroke. Stroke pager was activated. Accu-Chek was within normal limits. Stroke workup was ordered. She was taken to CT imaging for CT and CTA of the head. Last known well was 9 AM and patient is not a TPA candidate at this time. NIH was 1. Symptoms have remained stable. She also has an acute headache will be given a migraine cocktail as well. We will hold the Toradol until results of ct imaging are known. She was in agreement this plan. I spoke with the stroke palliative care nurse practitioner, Dr. Gary who was in agreement this plan. Patient is not a TPA candidate and unless a acute thrombus was identified, likely will remain at her hospital for evaluation by neurology tomorrow. He'll follow-up with the imaging. Patient's CT head revealed no acute intracranial process. Patient's CTA brain and neck revealed no stenosis or large vessel acute occlusion. There is a tiny out patching the inferior aspect of the right carotid terminus sec related to an aneurysm versus infundibulum and they recommend an MRI for further evaluation. Chest x-ray showed no acute cardiopulmonary process. EKG showed no acute signs of ischemia. Laboratory studies were remarkable for an initial indeterminate troponin, repeat is negative. Remainder the patient's laboratory studies are unremarkable. COVID-19 swab is negative. Patient does have a hypokalemia which will be replenished. Reevaluation, NIH remains 1. Her headache is improved following migraine cocktail and analgesia. I discussed with her the results of her imaging as well as laboratory studies. I would like to admit her to the hospital for further evaluation including MRI and neurological consult. She was in agreement this plan. Vital signs remain stable at this time. I consult with Dr. Reynolds of neurology, who was in agreement with plan. Patient was given an aspirin 325 mg. I spoke with the admitting team under Dr. Jackson, who accepted the patient. Patient was therefore admitted and serous condition to a telemetry bed. - Lab Data Result diagrams: 07/27/21 16:10 07/27/21 Unknown Lab Results 07/27/21 07/27/21 07/27/21 Range/Units 16:10 16:10 16:10 WBC 7.3 (3.8-10.6) k/uL RBC 4.86 (3.80-5.40) m/uL Hgb 15.4 (11.4-16.0) gm/dL Hct 46.2 H (34.0-46.0) % MCV 95.0 (80.0-100.0) fL MCH 31.8 (25.0-35.0) pg MCHC 33.4 (31.0-37.0) g/dL RDW 12.6 (11.5-15.5) % Plt Count 306 (150-450) k/uL MPV 7.9 Neutrophils % 64 % Lymphocytes % 25 % Monocytes % 7 % Eosinophils % 2 % Basophils % 1 % Neutrophils # 4.7 (1.3-7.7) k/uL Lymphocytes # 1.8 (1.0-4.8) k/uL Monocytes # 0.5 (0-1.0) k/uL Eosinophils # 0.1 (0-0.7) k/uL Basophils # 0.0 (0-0.2) k/uL PT 14.7 H (9.0-12.0) sec INR 1.5 H (<1.2) APTT 35.5 H (22.0-30.0) sec POC Glucose (mg/dL) (75-99) mg/dL POC Glu Postal Worker ID Troponin I 0.023 (0.000-0.034) ng/mL 07/27/21 Range/Units 16:26 WBC (3.8-10.6) k/uL RBC (3.80-5.40) m/uL Hgb (11.4-16.0) gm/dL Hct (34.0-46.0) % MCV (80.0-100.0) fL MCH (25.0-35.0) pg MCHC (31.0-37.0) g/dL RDW (11.5-15.5) % Plt Count (150-450) k/uL MPV Neutrophils % % Lymphocytes % % Monocytes % % Eosinophils % % Basophils % % Neutrophils # (1.3-7.7) k/uL Lymphocytes # (1.0-4.8) k/uL Monocytes # (0-1.0) k/uL Eosinophils # (0-0.7) k/uL Basophils # (0-0.2) k/uL PT (9.0-12.0) sec INR (<1.2) APTT (22.0-30.0) sec POC Glucose (mg/dL) 96 (75-99) mg/dL POC Glu Postal Worker ID Troponin I (0.000-0.034) ng/mL - EKG Data -: EKG Interpreted by Me EKG Comments: 12-lead Electrocardiogram Interpretation Note EKG was reviewed and interpreted by myself. 12-lead ECG performed at 1645 is interpreted by me as revealing normal sinus rhythm at a rate of 81 beats per minute. [place] is normal. [place] interval is 140 ms, QRS duration is 84 ms, QTc is 453 ms.. There were no ST or T wave abnormalities to suggest myocardial ischemia or injury. R wave progression across the precordium was satisfactory. By my interpretation this EKG is non-diagnostic for acute ischemia. Critical Care Time Critical Care Time: Yes Total Critical Care Time: 30 Critical Care Time: Upon my evaluation, this patient had a high probability of imminent or life- threatening deterioration due to CVA/TIA, which required my direct attention, intervention, and personal management. I have personally provided 30 minutes of critical care time exclusive of time spent on separately billable procedures. Time includes review of laboratory data, radiology results, discussion with consultants, and monitoring for potential decompensation. Interventions were performed as documented in my note. Disposition Clinical Impression: Cerebrovascular accident (CVA), Headache, Arm paresthesia, right, Facial paresthesia, Hypokalemia Disposition: ADMITTED IP TO THIS [facility] Condition: Serious
[2021-07-28] MEDS: ACETAMINOPHEN TAB 325 MG TAB PO PRN (02:03)
[2021-07-28] MEDS: MORPHINE SULFATE 4 MG/ML SYRINGE IV PRN ×2 (08:54→14:57)
--- NOTE | 2021-07-28 13:25 | MR ---
EXAMINATION TYPE: MR brain wo/w con DATE OF EXAM: 07/28/2021 COMPARISON: CT brain from yesterday. HISTORY: CVA. . Acute onset neurologic deficit or right-sided weakness one day earlier. TECHNIQUE: Multiplanar, multisequence images of the brain and brainstem is performed without and with IV contras t, utilizing 7 mL intravenous Gadavist . FINDINGS: Diffusion weighted images demonstrate no evidence of a recent infarct or other diffusion ab normality. The ventricular system and cisternal spaces are normal in size and appearance. The brain volume is age appropriate. Scattered small foci of T2 hyperintensity are seen throughout the white ma tter bilaterally. Approximately 20 lesions with largest lesions involving the bilateral parietal lobe s axial image 20 Midline structures demonstrate normal morphology. Some prominence of CSF in the posterior aspect post erior fossa as slightly more prominent right-sided component there is redemonstrated. The craniocervi davida junction appears within normal limits. Post contrast images demonstrate no abnormal enhancement. The dural venous sinuses appear patent. The visualized sinuses are clear and the globes are intact. Nasal septum is deviated to right of midline. IMPRESSION: 1. No MRI evidence for recent infarct. 2. 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 Correlate clinically to exclude demyelinating disease in patient under 50 years of age. No enhancing lesions are present. 3. Prominent CSF posterior aspect posterior fossa consistent with andrew cisterna magna or arachnoid cy st is redemonstrated.
[2021-07-28 13:38] LABS: Chol/HDL Ratio 2.28 Ratio; HDL Cholesterol 72.7 mg/dL (40.00-60.00); LDL Cholesterol,Calculated 81.1 mg/dL (0.0-131.0); Triglycerides 61.2 mg/dL (0.00-149.00); VLDL Calculation 12.24 mg/dL (5.00-40.00)
[2021-07-28] MEDS ORDERED: SUCRALFATE 1 GM TAB PO PRN (13:49)
--- NOTE | 2021-07-28 13:58 | P.HPIM ---
History of Present Illness H&P Date: 07/28/21 HISTORY OF PRESENT ILLNESS This is a 61-year-old female patient of Dr. Jackson past medical history of hypertension, hyperlipidemia, gastroesophageal reflux disease, TIA, insomnia, depression, generalized anxiety disorder, COPD, stress incontinence. She presented to [facility] emergency center due to right-sided facial numbness and right arm numbness and tingling. No noted weakness. She complains of a headache. Patient was afebrile, heart rate 85, blood pressure 141/88, pulse ox 98% on room air. CBC was unremarkable. Potassium 2.9 and has been replaced. Otherwise CMP is unremarkable. Triglycerides 61, cholesterol 166, LDL 81, HDL 72. Coronavirus PCR not detected. Troponin negative on 3 draws. EKG normal sinus rhythm without acute ST changes. CAT scan of the brain showed no acute intracranial hemorrhage or midline shift. CT angiogram of the head and neck showed no large vessel occlusion or hemodynamically significant stenosis in the head or neck. A tiny outpouching of the inferior aspect of the right carotid terminus could relate to an infundibulum versus a tiny 2 mm aneurysm. Chest x-ray shows no acute cardiopulmonary process. MRI of the brain revealed no evidence of recent infarct. Mild to borderline moderate nonspecific white matter changes somewhat prominent for patient's chronological age. Correlate to exclude demyelinating disease inpatient under 50 years of age. No enhancing lesions are present. Prominent CSF posterior aspect posterior fossa consistent with andrew-cisterna magna or arachnoid cyst is redemonstrated. Patient is seen today in the emergency center waiting for a bed on the [facility] floor, consult with neurology. REVIEW OF SYSTEMS Constitutional: No fever, no chills, no night sweats. No weight change. No weakness, fatigue or lethargy. No daytime sleepiness. EENT: Reports headache. No blurred vision or double vision, no loss of vision. No loss of Hearing, no ringing in the ears, no dizziness. No nasal drainage or congestion. No epistaxis. No sore throat. Lungs: No shortness of breath, cough, no sputum production. No wheezing. Cardiovascular: No chest pain, no lower extremity edema. No palpitations. No paroxysmal nocturnal dyspnea. No orthopnea. No lightheadedness or dizziness. No syncopal episodes. Abdominal: No abdominal pain. No nausea, vomiting. No diarrhea. No constipation. No bloody or tarry stools.. No loss of appetite. Genitourinary: No dysuria, increased frequency, urgency. No urinary retention. Musculoskeletal: No myalgias. No muscle weakness, no gait dysfunction, no frequent falls. No back pain. No neck pain. Integumentary: No wounds, no lesions. No rash or pruritus. No unusual bruising. No change in hair or nails. Neurologic: No aphasia. No facial droop. No change in mentation. No head injury. No headache. No paralysis. Numbness tingling to the face Psychiatric: No depression. No anxiety. No mood swings. Endocrine: No abnormal blood sugars. No weight change. No excessive sweating or thirst. No cold intolerance. MEDICAL HISTORY Hypertension Hyperlipidemia Gastroesophageal reflux disease with esophagitis TIA Insomnia Depression Chronic obstructive pulmonary disease Generalized anxiety disorder Stress incontinence Pulmonary embolism on Xarelto SURGICAL HISTORY Bilateral mastectomy with implants Cholecystectomy Total hysterectomy Colonoscopy in 2019 Umbilical hernia in 2017 SOCIAL HISTORY Patient was a smoker of one pack per day for 28 years and quit in 2016. No marijuana, illicit use, no alcohol use. FAMILY HISTORY Father is alive at age 70 with PAD and alcohol history. Mother is alive at age 69 with AVR and anxiety. Patient has one brother that at age 21 from auto accident. Patient has 3 sons and 2 daughters with no major medical problems. PHYSICAL EXAMINATION Gen: This is a 51-year-old female. Patient is resting on the ER stretcher and appears to be comfortable and in no acute distress. HEENT: Head is atraumatic, normocephalic. Pupils equal, round. Sclerae is anicteric. NECK: Supple. No JVD. No lymphadenopathy. No thyromegaly. LUNGS: Clear to auscultation. No wheezes or rhonchi. No intercostal retractions. HEART: Regular rate and rhythm. No murmur. ABDOMEN: Soft. Bowel sounds are present. No masses. No tenderness. EXTREMITIES: No pedal edema. No calf tenderness. NEUROLOGICAL: Patient is awake, alert and oriented x3. Cranial nerves 2 through 12 are grossly intact. ASSESSMENT AND PLAN 1. Numbness tingling to face arm and headache, rule out TIA. Imaging studies have been negative for stroke. Consult with neurology. Continue Lipitor 40 mg at bedtime. 2. Hypertension. Continue losartan 100 mg daily, Toprol-XL 25 mg daily. 3. Hyperlipidemia. Continue Lipitor 40 mg at bedtime. 4. Gastroesophageal reflux disease. Continue Protonix 40 mg twice daily and Carafate twice daily as needed. 5. TIA history. 6. Insomnia. 7. COPD without exacerbation. Continue albuterol inhaler, Spiriva 2 puffs daily. 8. Generalized anxiety disorder, recurrent depression. Continue BuSpar 15 mg twice daily, Cymbalta 60 mg daily, gabapentin 600 mg twice daily. 9. Pulmonary embolism. Continue Xarelto 20 mg at supper. 10. COVID-19 testing negative. Patient has been hospitalized during a pandemic. Patient will be admitted to the hospital for a minimum of 2 night stay. DISCHARGE PLAN Home. Impression and plan of care have been directed as dictated by the signing physician. Lana Oro nurse practitioner acting as scribe for signing physician. Past Medical History Past Medical History: Asthma, COPD, CVA/TIA, Hyperlipidemia, Hypertension, Pulmonary Embolus (PE), Sleep Apnea/CPAP/BIPAP Additional Past Medical History / Comment(s): PE dx. in May, doesn't use CPAP currently-uses O2 2l @[facility], ?TIA in May-no residual effects other than some intermittent numbness/tingling left arm, "pre-cancerous" cells breast & family hx.-grandmother & aunt History of Any Multi-Drug Resistant Organisms: None Reported Past Surgical History: Breast Surgery, Cholecystectomy, Hernia Repair, Hysterectomy Additional Past Surgical History / Comment(s): prophylactic mastectomy stephanie D/T family hx Past Anesthesia/Blood Transfusion Reactions: No Reported Reaction Past Psychological History: Anxiety, Depression Smoking Status: Former smoker Past Alcohol Use History: None Reported Past Drug Use History: None Reported - Past Family History Mother Additional Family Medical History / Comment(s): had heart valve replacement Medications and Allergies Home Medications Medication Instructions Recorded Confirmed Type Atorvastatin [Lipitor] 40 mg PO HS 08/13/20 07/27/21 History DULoxetine HCL [Cymbalta] 60 mg PO DAILY 08/13/20 07/27/21 History Metoprolol Succinate [Toprol XL] 25 mg PO DAILY 08/13/20 07/27/21 History Albuterol Sulfate [Albuterol 1 - 2 puff INHALATION RT-Q6H PRN 09/23/20 07/27/21 History Sulfate Hfa] Gabapentin 600 mg PO BID 09/23/20 07/27/21 History Pantoprazole Sodium [Protonix] 40 mg PO BID 09/23/20 07/27/21 History Acetaminophen Tab [Tylenol] 1,000 mg PO Q6H PRN 01/09/21 07/27/21 History Rivaroxaban [Xarelto] 20 mg PO W/SUPPER #30 tab 01/10/21 07/27/21 Rx Clindamycin HCl 300 mg PO Q8H 07/27/21 07/27/21 History Losartan Potassium 100 mg PO DAILY 07/27/21 07/27/21 History Sucralfate [Carafate] 1 gm PO BID PRN 07/27/21 07/27/21 History Tiotropium 2.5 Mcg/Puff [Spiriva 2 puff INHALATION RT-DAILY 07/27/21 07/27/21 History Respimat 2.5 Mcg] Tobra-Dexamet 0.3-0.1% Eye Glenna 1 drop BOTH EYES BID 07/27/21 07/27/21 History [Tobradex Ophth Susp] busPIRone HCL 15 mg PO BID 07/27/21 07/27/21 History Allergies Allergy/AdvReac Type Severity Reaction Status Date / Time Penicillins Allergy Unknown Verified 07/27/21 18:34 codeine AdvReac Nausea & Verified 07/27/21 18:34 [From Tylenol-Codeine #3] Vomiting Physical Exam Vitals: Vital Signs Temp Pulse Resp BP Pulse Ox 07/28/21 05:15 53 L 18 138/87 100 07/28/21 03:35 55 L 18 106/66 98 07/28/21 01:42 97.6 F 77 18 114/91 99 07/27/21 22:00 74 18 115/72 07/27/21 21:00 78 18 118/78 07/27/21 20:00 76 20 122/80 07/27/21 19:00 82 18 120/76 07/27/21 18:00 74 18 130/72 07/27/21 17:45 78 18 128/81 99 07/27/21 17:30 80 18 121/80 98 07/27/21 17:15 82 18 138/92 99 07/27/21 17:00 76 18 139/82 99 07/27/21 16:45 84 18 141/81 99 07/27/21 16:30 80 20 130/97 96 07/27/21 16:15 82 22 145/88 96 07/27/21 15:48 98.2 F 85 18 141/88 98 Intake and Output 07/27/21 07/28/21 07/28/21 22:59 06:59 14:59 Other: Weight 68.492 kg Results CBC & Chem 7: 07/27/21 16:10 07/27/21 Unknown Labs: Abnormal Lab Results - Last 24 Hours (Table) 07/27/21 07/27/21 07/27/21 Range/Units 16:10 16:10 Unknown Hct 46.2 H (34.0-46.0) % PT 14.7 H (9.0-12.0) sec INR 1.5 H (<1.2) APTT 35.5 H (22.0-30.0) sec Potassium 2.9 L (3.5-5.1) mmol/L Total Protein 6.2 L (6.3-8.2) g/dL
--- NOTE | 2021-07-28 16:16 | P.CNNES ---
History of Present Illness Consult date: 07/28/21 Requesting physician: Imer Oliva Reason for Consult: CVA/TIA History of Present Illness: Patient is a 51-year-old female came to the hospital yesterday at 3:10 PM for bad headache and right-sided paresthesias. Patient states that yesterday she woke up at 6 AM and was in usual state of health. At around 9 AM, she started having headache, involving the occipital region, which became worse. About an hour later she started noticing numbness and tingling of the right hand, right arm, she started seeing halos in her vision. Also noticed tingling of the the tongue, and the lips. When I asked if it was bilateral or unilateral, patient states, "mostly the right side". She also felt numb in the right side of the throat when she was swallowing. Patient's vital signs on arrival blood pressure 141/88, pulse rate 85, temperature 98.2. CT head showed no acute intracranial hemorrhage or midline shift. No significant change from prior. CTA of the neck shows no large vessel occlusion or hemodynamically significant stenosis in the head or neck. A tiny outpouching at the inferior aspect of the right carotid terminus could relate to an infundibulum versus a tiny 2 mm aneurysm. I reviewed this CTA with another neuroradiologist Dr. Suarez, who believe that there is no aneurysm. Chest x-ray showed no acute cardio pulmonary process. EKG with normal sinus rhythm. Patient was recently seen by Dr. Jeffry Goel on 01/10/2021 for left-sided chest pain with radiation to the left arm of 2 days' duration. Patient was also having left forearm and hand and oral tingling. TIA was suspected. MRI of the brain revealed no cortical infarct at that time. Patient had a STARLA also on 08/15/2020, which revealed left atrial appendage with no intracardiac thrombus. Left ventricular size is normal. Interatrial septum is intact. There is no evidence for [id number]-[id number] shunt by color flow Doppler or right to left shunt by agitated saline contrast study. No aneurysm dissection or significant atherosclerosis. Patient was recommended to stop Xarelto at that time by Dr. Duffy. At present patient is on Xarelto 20 mg daily since 01/10/2021 (restarted after last admission) BuSpar 15 mg twice a day, losartan, pantoprazole, gabapentin 600 mg twice a day, Lipitor 40 mg, Celexa 60 mg and metoprolol. At present patient complains of occipital headache 8.5/10. Also complains of some tingling of the right hand, right side of the tongue and the toes of the right foot. Patient denies any history of migraines, no family history of migraines or MS. Patient has smoked 1-1/2 pack per day for 28 years (age [age]) when she quit in 2016. She drinks alcohol occasionally, no drugs. Patient states that she has been having this numbness "coming on more often lately". It may involve the finger, arm tongue last for couple hours. It is occurring approximately about twice a month. Review of Systems Positive for headaches, visual disturbance, numbness tingling. No chest pain, abdominal pain. No nausea vomiting diarrhea. She is light and noise sensitive. No fever or chills. No trauma. Patient denies any sore throat, tonsillitis, any fever or chills. Complains of some painful lump in the right occipital region, which appears more like a inflamed lymph node. No recent infection, flulike illness. Past Medical History Past Medical History: Asthma, COPD, CVA/TIA, Hyperlipidemia, Hypertension, Pulmonary Embolus (PE), Sleep Apnea/CPAP/BIPAP Additional Past Medical History / Comment(s): PE dx. in May, doesn't use CPAP currently-uses O2 2l @[facility], ?TIA in May-no residual effects other than some intermittent numbness/tingling left arm, "pre-cancerous" cells breast & family hx.-grandmother & aunt History of Any Multi-Drug Resistant Organisms: None Reported Past Surgical History: Breast Surgery, Cholecystectomy, Hernia Repair, Hyst erectomy Additional Past Surgical History / Comment(s): prophylactic mastectomy stephanie D/T family hx Past Anesthesia/Blood Transfusion Reactions: No Reported Reaction Past Psychological History: Anxiety, Depression Smoking Status: Former smoker Past Alcohol Use History: None Reported Past Drug Use History: None Reported - Past Family History Mother Additional Family Medical History / Comment(s): had heart valve replacement Medications and Allergies Home Medications Medication Instructions Recorded Confirmed Type Atorvastatin [Lipitor] 40 mg PO HS 08/13/20 07/27/21 History DULoxetine HCL [Cymbalta] 60 mg PO DAILY 08/13/20 07/27/21 History Metoprolol Succinate [Toprol XL] 25 mg PO DAILY 08/13/20 07/27/21 History Albuterol Sulfate [Albuterol 1 - 2 puff INHALATION RT-Q6H PRN 09/23/20 07/27/21 History Sulfate Hfa] Gabapentin 600 mg PO BID 09/23/20 07/27/21 History Pantoprazole Sodium [Protonix] 40 mg PO BID 09/23/20 07/27/21 History Acetaminophen Tab [Tylenol] 1,000 mg PO Q6H PRN 01/09/21 07/27/21 History Rivaroxaban [Xarelto] 20 mg PO W/SUPPER #30 tab 01/10/21 07/27/21 Rx Clindamycin HCl 300 mg PO Q8H 07/27/21 07/27/21 History Losartan Potassium 100 mg PO DAILY 07/27/21 07/27/21 History Sucralfate [Carafate] 1 gm PO BID PRN 07/27/21 07/27/21 History Tiotropium 2.5 Mcg/Puff [Spiriva 2 puff INHALATION RT-DAILY 07/27/21 07/27/21 History Respimat 2.5 Mcg] Tobra-Dexamet 0.3-0.1% Eye Glenna 1 drop BOTH EYES BID 07/27/21 07/27/21 History [Tobradex Ophth Susp] busPIRone HCL 15 mg PO BID 07/27/21 07/27/21 History Allergies Allergy/AdvReac Type Severity Reaction Status Date / Time Penicillins Allergy Unknown Verified 07/27/21 18:34 codeine AdvReac Nausea & Verified 07/27/21 18:34 [From Tylenol-Codeine #3] Vomiting Physical Examination - Vital Signs Vital Signs: Vital Signs Temp Pulse Resp BP Pulse Ox 07/28/21 08:41 98.4 F 69 16 129/89 93 L 07/28/21 05:15 53 L 18 138/87 100 07/28/21 03:35 55 L 18 106/66 98 07/28/21 01:42 97.6 F 77 18 114/91 99 07/27/21 22:00 74 18 115/72 07/27/21 21:00 78 18 118/78 07/27/21 20:00 76 20 122/80 07/27/21 19:00 82 18 120/76 07/27/21 18:00 74 18 130/72 07/27/21 17:45 78 18 128/81 99 07/27/21 17:30 80 18 121/80 98 07/27/21 17:15 82 18 138/92 99 07/27/21 17:00 76 18 139/82 99 07/27/21 16:45 84 18 141/81 99 07/27/21 16:30 80 20 130/97 96 07/27/21 16:15 82 22 145/88 96 07/27/21 15:48 98.2 F 85 18 141/88 98 Intake and Output 07/27/21 07/28/21 07/28/21 22:59 06:59 14:59 Other: Weight 68.492 kg Patient is a middle aged female, who appears to be in mild distress because of the headache. She appears slightly photophobic. She keeps her lights dim at this time. Patient is alert awake oriented to time place and person. Speech and language functions are normal. Attention, concentration and fund of knowledge is adequate. She has mildly hoarse voice. Complains of some lump in the right occipital region, which appears more like an inflamed lymph node. On cranial examination, pupils are round and reacting to light, visual munoz are full on confrontation, extraocular muscles are intact with no nystagmus. Face is symmetric, tongue protrudes to the midline. Palatal elevation and sensation normal, hearing and shoulder shrug normal, facial sensation normal. Shoulder shrug normal. On muscle strength testing, there is no pronator drift and the strength is normal in arms and legs distally and proximally. Deep tendon reflexes are quite brisk, 2+ to 3+ all over and plantars downgoing. No clonus. Sensory to touch is equal with no neglect. Cerebellar function showed no ataxia for [id number] testing. No dysdiadochokinesia. Tone and bulk of muscles normal. Gait deferred. On general examination, there is no carotid bruit or murmur, S1-S2 audible. Abdomen is soft nontender. Chest is clear. Peripheral pulses are present. No edema. Results - Laboratory Findings CBC and BMP: 07/27/21 16:10 07/29/21 05:37 Abnormal Lab Findings: Abnormal Labs 07/27/21 07/27/21 07/27/21 16:10 16:10 Unknown Hct 46.2 H PT 14.7 H INR 1.5 H APTT 35.5 H Potassium 2.9 L Total Protein 6.2 L Assessment and Plan Assessment: * Cephalgia involving occipital region, with right-sided paresthesias, unclear etiology. Rule out TIA, rule out migraine (no previous history of migraines). Current neurological examination is normal. MRI of the brain revealed no acu te stroke. Some small vessel disease versus demyelinating process. * History of possible TIA in December 2020 when she had presented with symptoms involving left arm and oral region. * Recurrent episodes of paresthesias involving right side of unclear etiology. Rule out demyelinating process. MRI of brain does reveal white matter lesions, slightly concerning for demyelinating process. * Hypertension * Hyperlipidemia * History of PE, currently on Xarelto. * X tobacco use Plan: * Patient underwent MRI of the brain, which revealed no acute process. Small vessel disease versus demyelinating process. If patient continues to have these neurological symptoms, then may need lumbar puncture as an outpatient to rule out any demyelinating disease like MS, given her young age. * Continue Xarelto at this time. * Consider Fioricet as needed for migraine. Orders revealed interaction of Fioricet with Xarelto. * CTA of the head reported as possible infundibulum versus 2 mm aneurysm. I discussed with another neuroradiologist Dr. Suarez, who does not believe there is any aneurysm. * 2-D echo from 01/11/2021 shows normal left ventricular size, EF is greater than 55%. Left ventricular size is normal. Trace MR. No aortic stenosis. No need to repeat echo at this time. * Patient's hemoglobin A1c 4.9, cholesterol 166, LDL 81, HDL 72 and triglycerides 61. Continue Lipitor 40 mg. * No other workup indicated at this time. Neurologically clear, when patient's headache resolves. * Suggest patient follow up with neurologist as an outpatient.
[2021-07-28] MEDS ORDERED: RIVAROXABAN 20 MG TAB PO SCH (17:30)
[2021-07-28] MEDS: IPRATROPIUM 0.5 MG/2.5 ML NEBU INHALATION SCH ×2 (20:08→20:11)
[2021-07-28] MEDS ORDERED: ATORVASTATIN 40 MG TAB PO SCH (21:00)
[2021-07-28] MEDS: TOBRA-DEXAMET 0.3-0.1% OPHTH DROPS 2.5 ML BTL BOTH EYES SCH (21:39)
[2021-07-28] MEDS: busPIRone HCl 5 MG TAB PO SCH (21:42)
[2021-07-28] MEDS: GABAPENTIN 300 MG CAP PO SCH (21:43)
[2021-07-28] MEDS: PANTOPRAZOLE 40 MG TABLET PO SCH (21:43)
[2021-07-29] MEDS: ACETAMINOPHEN TAB 325 MG TAB PO PRN ×2 (04:03→08:53)
[2021-07-29 06:36] LABS: African American GFR (CKD) >90 (>60 ml/min/1.73 sqM); Anion Gap 6 mmol/L; Blood Urea Nitrogen 5 mg/dL (7-17); Calcium 9.2 mg/dL (8.4-10.2); Carbon Dioxide 32 mmol/L (22-30); Chloride 99 mmol/L (98-107); Glucose 95 mg/dL (74-99); Non-African American GFR(CKD) >90 (>60 ml/min/1.73 sqM); Potassium 3.1 mmol/L (3.5-5.1); Sodium 137 mmol/L (137-145)
[2021-07-29] MEDS: IPRATROPIUM 0.5 MG/2.5 ML NEBU INHALATION SCH ×2 (07:28→10:54)
[2021-07-29] MEDS: PANTOPRAZOLE 40 MG TABLET PO SCH (08:50)
[2021-07-29] MEDS: GABAPENTIN 300 MG CAP PO SCH (08:50)
[2021-07-29] MEDS: busPIRone HCl 5 MG TAB PO SCH (08:50)
[2021-07-29] MEDS ORDERED: METOPROLOL SUCCINATE (ER) 25 MG TAB.ER.24H PO SCH (09:00)
[2021-07-29] MEDS ORDERED: LOSARTAN 50 MG TAB PO SCH (09:00)
[2021-07-29] MEDS ORDERED: DULoxetine HCL 60 MG CAPSULE.DR PO SCH (09:00)
[2021-07-29] MEDS ORDERED: BUTALB/APAP/CAFF 50-325-40MG TAB PO PRN ×2 (12:25→12:31)
[2021-07-29] MEDS: TOBRA-DEXAMET 0.3-0.1% OPHTH DROPS 2.5 ML BTL BOTH EYES SCH (12:30)
[2021-07-29 12:54] VITALS: BP 107/66; PULSE 70; RESP 17; TEMP 98.2
--- NOTE | 2021-07-29 14:29 | P.DS ---
Providers Date of admission: 07/27/21 19:22 Expected date of discharge: 07/29/21 Attending physician: Amy Jackson Consults: 07/27/21 19:23 Consult Physician Urgent Consulting Provider: Mazin Reynolds Consult Reason/Comments: cva/tia Do you want consulting provider notified?: Yes Primary care physician: Amy Jackson [place] Course: HISTORY OF PRESENT ILLNESS This is a 61-year-old female patient of Dr. Jackson past medical history of hypertension, hyperlipidemia, gastroesophageal reflux disease, TIA, insomnia, depression, generalized anxiety disorder, COPD, stress incontinence. She presented to [facility] emergency center due to right-sided facial numbness and right arm numbness and tingling. No noted weakness. She complains of a headache. Patient was afebrile, heart rate 85, blood pressure 141/88, pulse ox 98% on room air. CBC was unremarkable. Potassium 2.9 and has been replaced. Otherwise CMP is unremarkable. Triglycerides 61, cholesterol 166, LDL 81, HDL 72. Coronavirus PCR not detected. Troponin negative on 3 draws. EKG normal sinus rhythm without acute ST changes. CAT scan of the brain showed no acute intracranial hemorrhage or midline shift. CT angiogram of the head and neck showed no large vessel occlusion or hemodynamically significant stenosis in the head or neck. A tiny outpouching of the inferior aspect of the right carotid terminus could relate to an infundibulum versus a tiny 2 mm aneurysm. Chest x-ray shows no acute cardiopulmonary process. MRI of the brain revealed no evidence of recent infarct. Mild to borderline moderate nonspecific white matter changes somewhat prominent for patient's chronological age. Correlate to exclude demyelinating disease inpatient under 50 years of age. No enhancing lesions are present. Prominent CSF posterior aspect posterior fossa consistent with andrew-cisterna magna or arachnoid cyst is redemonstrated. Patient is seen today in the emergency center waiting for a bed on the MedSurg floor, consult with neurology. 07/29: Neurology with recommendations for outpatient follow-up for LP and MS workup. Patient will be set up to follow with Dr. Lopez. Patient continues to complain of headache but she was able to get some sleep in. Fioricet did help with her headache. Prescription will be sent to her pharmacy and patient has completed and reviewed the start talking form. She has been afebrile, heart rate 70, blood pressure 107/66 and pulse ox 96% on room air. Patient will be discharged home today in stable condition. ASSESSMENT AND PLAN 1. Numbness tingling to face arm and headache, ruled out TIA. 2. Hypertension. 3. Hyperlipidemia. 4. Gastroesophageal reflux disease. 5. TIA history. 6. Insomnia. 7. COPD without exacerbation. 8. Generalized anxiety disorder, recurrent depression. 9. Pulmonary embolism. 10. COVID-19 testing negative. DISCHARGE PLAN Home. Impression and plan of care have been directed as dictated by the signing physician. Lana Oro nurse practitioner acting as scribe for signing physician. Patient Condition at Discharge: Serious Plan - Discharge Summary Discharge Rx Participant: No New Discharge Prescriptions: New Butalb/APAP/Caff 50-325-40Mg [Fioricet 50-325-40] 2 each PO Q4HR PRN #36 tab PRN Reason: Severe Headache Continue Metoprolol Succinate [Toprol XL] 25 mg PO DAILY DULoxetine HCL [Cymbalta] 60 mg PO DAILY Atorvastatin [Lipitor] 40 mg PO HS Gabapentin 600 mg PO BID Albuterol Sulfate [Albuterol Sulfate Hfa] 1 - 2 puff INHALATION RT-Q6H PRN PRN Reason: Shortness Of Breath Pantoprazole Sodium [Protonix] 40 mg PO BID Rivaroxaban [Xarelto] 20 mg PO W/SUPPER #30 tab Tobra-Dexamet 0.3-0.1% Eye Glenna [Tobradex Ophth Susp] 1 drop BOTH EYES BID Sucralfate [Carafate] 1 gm PO BID PRN PRN Reason: STOMACH ULCERS Clindamycin HCl 300 mg PO Q8H Acetaminophen Tab [Tylenol] 1,000 mg PO Q6H PRN PRN Reason: Pain busPIRone HCL 15 mg PO BID Tiotropium 2.5 Mcg/Puff [Spiriva Respimat 2.5 Mcg] 2 puff INHALATION RT-DAILY Losartan Potassium 100 mg PO DAILY Discharge Medication List Atorvastatin [Lipitor] 40 mg PO HS 08/13/20 [History] DULoxetine HCL [Cymbalta] 60 mg PO DAILY 08/13/20 [History] Metoprolol Succinate [Toprol XL] 25 mg PO DAILY 08/13/20 [History] Albuterol Sulfate [Albuterol Sulfate Hfa] 1 - 2 puff INHALATION RT-Q6H PRN 09/23/20 [History] Gabapentin 600 mg PO BID 09/23/20 [History] Pantoprazole Sodium [Protonix] 40 mg PO BID 09/23/20 [History] Acetaminophen Tab [Tylenol] 1,000 mg PO Q6H PRN 01/09/21 [History] Rivaroxaban [Xarelto] 20 mg PO W/SUPPER #30 tab 01/10/21 [Rx] Clindamycin HCl 300 mg PO Q8H 07/27/21 [History] Losartan Potassium 100 mg PO DAILY 07/27/21 [History] Sucralfate [Carafate] 1 gm PO BID PRN 07/27/21 [History] Tiotropium 2.5 Mcg/Puff [Spiriva Respimat 2.5 Mcg] 2 puff INHALATION RT-DAILY 07/27/21 [History] Tobra-Dexamet 0.3-0.1% Eye Glenna [Tobradex Ophth Susp] 1 drop BOTH EYES BID 07/27/21 [History] busPIRone HCL 15 mg PO BID 07/27/21 [History] Butalb/APAP/Caff 50-325-40Mg [Fioricet 50-325-40] 2 each PO Q4HR PRN #36 tab 07/29/21 [Rx] Follow up Appointment(s)/Referral(s): Amy Jackson MD [Primary Care Provider] - 1 Week Octavia Lopez MD [Medical Doctor] - 2 Weeks (MS work up/LP) Activity/Diet/Wound Care/Special Instructions: Off work until Tuesday.Recheck in the office. Discharge Disposition: HOME SELF-CARE
--- NOTE | 2021-07-31 13:25 | CDI ---
Documentation Clarification Form Date: 07/31/2021 01:17:18 PM From: Jan Maxwell Admit Date: 07/27/2021 07:22:00 PM Patient Name: Sari Rowe Visit Number: [id number] Discharge Date: 07/29/2021 04:20:00 PM ATTENTION: The Clinical Documentation Specialists (CDI) and [facility] Coding Staff appreciate your assistance in clarifying documentation. Please respond to the clarification below the line at the bottom and electronically sign. The CDI & [facility] Coding staff will review the response and follow-up if needed. Please note: Queries are made part of the Legal Health Record. If you have any questions, please contact the author of this message via ITS. Dr. Amy Jackson The patients principal diagnosis the diagnosis that was chiefly responsible for the admission - has not been clearly identified and clarification is requested. The patient presented with headache and numbness of skin. History/Risk factors: Clinical Indicators: Lab findings: Radiology findings: MRI of brain negative Vital Signs: Treatment: Consults: Neurology In your professional opinion, can you please clarify which diagnosis, after study, was the reason chiefly responsible for the admission? [ X ] demyelinating disease [ ] TIA [ ] Other, please specify [ ] Unable to determine [ ] numbness of skin of undetermined etiology [ ] headache of udetermined etiology MTDD
== END 2021-07-29 16:20 | disposition home or self-care (01) | DRG 59 ==
LOC: EC 15:10 → 3SCARD 19:22 → 5NMEDONC 07-28 14:56
PROVIDERS: ADMIT Internal Medicine; ATTEND Internal Medicine
DX: G37.9 Demyelinating disease of central nervous system, unspecified (principal); F33.9 Major depressive disorder, recurrent, unspecified; R20.2 Paresthesia of skin; E78.5 Hyperlipidemia, unspecified; E87.6 Hypokalemia; F41.1 Generalized anxiety disorder; G47.00 Insomnia, unspecified; I10 Essential (primary) hypertension; J44.9 Chronic obstructive pulmonary disease, unspecified; K21.9 Gastro-esophageal reflux disease without esophagitis; Z20.822 Contact with and (suspected) exposure to COVID-19; Z79.01 Long term (current) use of anticoagulants; Z79.899 Other long term (current) drug therapy; Z86.711 Personal history of pulmonary embolism; Z86.73 Personal history of transient ischemic attack (TIA), and cerebral infarction without residual deficits; Z87.891 Personal history of nicotine dependence; Z90.13 Acquired absence of bilateral breasts and nipples; Z90.710 Acquired absence of both cervix and uterus; Z88.0 Allergy status to penicillin; R29.701 NIHSS score 1; N39.3 Stress incontinence (female) (male); R51.9 Headache, unspecified
CPT/HCPCS: 36415; 70450; 70496; 70498; 70553; 71046; 80048; 80053; 80061; 84484; 85025; 85610; 85730; 87635; 93005; 94640; 96374; 96375; 99291

== ENCOUNTER → 2021-09-01 | Outpatient (CLI) | payer OTHER ==
[2021-09-01 17:16] LABS: T4, Free (Free Thyroxine) 1.62 ng/dL (0.800-1.800)
== END | disposition home or self-care (01) ==
LOC: LABWHC1 09:42
PROVIDERS: ATTEND Nurse Practitioner Family
DX: E55.9 Vitamin D deficiency, unspecified (principal); G35 Multiple sclerosis; R90.82 White matter disease, unspecified; R42 Dizziness and giddiness
CPT/HCPCS: 36415; 82040; 82042; 82306; 82607; 82784; 83873; 83916; 84439; 84443; 84481; 87801

== ENCOUNTER → 2021-11-25 | Outpatient (CLI) | payer OTHER ==
[2021-11-25 21:24] LABS: C Reactive Protein <0.30 mg/dL (0.00-0.80); Rheumatoid Factor, Qnt <10 IU/mL (0-15)
[2021-11-26 01:23] LABS: Anti-Smith Ab Interp NEGATIVE (NEGATIVE); Cyclic Citrull Pep IgG Unit <0.5 U/mL; Cyclic Citrullinated Pep IgG NEGATIVE (NEGATIVE); DNA Double-Stranded NEGATIVE (NEGATIVE); JO-1 IgG Antibody <0.2 AI; Scleroderma SC-70 Ab <0.2 AI
== END | disposition home or self-care (01) ==
LOC: LABWHC1 12:01
PROVIDERS: ATTEND Nurse Practitioner Family
DX: M25.50 Pain in unspecified joint (principal)
CPT/HCPCS: 36415; 83516; 86038; 86140; 86200; 86225; 86235; 86431

== ENCOUNTER → 2022-01-07 | Outpatient (CLI) | payer OTHER ==
[2022-01-07 18:27] LABS: Basophils # (A) 0.03 X 10*3/uL (0.00-0.10); Basophils % (A) 0.5 %; Eosinophils # (A) 0.11 X 10*3/uL (0.04-0.35); HCT 41.3 % (37.2-46.3); HGB 13.3 g/dL (12.0-15.0); Immature Grans, Automated 0.2 %; Lymphocytes # (A) 1.44 X 10*3/uL (0.90-5.00); Lymphocytes % (A) 25.6 %; MCH 31.1 pg (27.0-32.0); MCHC 32.2 g/dL (32.0-37.0); MCV 96.5 fL (80.0-97.0); Mean Platelet Volume 10.4 fL (9.5-12.2); Monocytes # (A) 0.44 X 10*3/uL (0.20-1.00); Monocytes % (A) 7.8 %; NRBC Per 100 WBC 0 /100 WBCS (0.0-0.0); Neutrophils # (A) 3.59 X 10*3/uL (1.80-7.70); Neutrophils % (A) 63.9 %; Platelet Count 279 X 10*3/uL (140-440); RBC 4.28 X 10*6/uL (4.10-5.20); RDW 12.9 % (11.5-14.5); WBC 5.62 X 10*3/uL (4.50-10.00)
[2022-01-07 18:31] LABS: ALT 21 U/L (8-44); AST 17 U/L (13-35); African American GFR (CKD) 100.3 (60.0-200.0); Albumin 4.4 g/dL (3.8-4.9); Alkaline Phosphatase 120 U/L (41-126); BUN/Creat Ratio 7.38 Ratio (12.00-20.00); Blood Urea Nitrogen 5.9 mg/dL (9.0-27.0); Calcium 9.3 mg/dL (8.7-10.3); Carbon Dioxide 26.8 mmol/L (20.0-27.5); Chloride 101 mmol/L (96-109); Globulin 2.1 g/dL (1.6-3.3); Glucose 135 mg/dL (70-110); Magnesium 1.6 mg/dL (1.5-2.4); Non-African American GFR(CKD) 86.6 (60.0-200.0); Potassium 3.4 mmol/L (3.5-5.5); Sodium 140 mmol/L (135-145); Total Protein 6.5 g/dL (6.2-8.2)
== END | disposition home or self-care (01) ==
LOC: LABWHC1 11:33
PROVIDERS: ATTEND Internal Medicine
DX: I10 Essential (primary) hypertension (principal); F32.9 Major depressive disorder, single episode, unspecified; E78.2 Mixed hyperlipidemia
CPT/HCPCS: 36415; 80053; 80061; 83036; 83735; 84439; 84443; 85025

== ENCOUNTER → 2022-01-18 | Outpatient (CLI) | payer OTHER ==
[2022-01-18 18:20] LABS: Hepatitis A Antibody IgM Nonreactive (Nonreactive); Hepatitis B Core IgM Nonreactive (Nonreactive); Hepatitis B Surface Antigen Nonreactive (Nonreactive); Hepatitis C IgG Antibody Nonreactive (Nonreactive)
[2022-01-18 19:25] LABS: Basophils # (A) 0.03 X 10*3/uL (0.00-0.10); Basophils % (A) 0.6 %; Eosinophils # (A) 0.27 X 10*3/uL (0.04-0.35); Eosinophils % (A) 5.7 %; HCT 42.7 % (37.2-46.3); HGB 13.9 g/dL (12.0-15.0); Immature Grans, Automated 0.4 %; Lymphocytes # (A) 1.91 X 10*3/uL (0.90-5.00); Lymphocytes % (A) 40.1 %; MCH 31.4 pg (27.0-32.0); MCHC 32.6 g/dL (32.0-37.0); MCV 96.6 fL (80.0-97.0); Mean Platelet Volume 10.7 fL (9.5-12.2); Monocytes # (A) 0.55 X 10*3/uL (0.20-1.00); Monocytes % (A) 11.6 %; NRBC Per 100 WBC 0 /100 WBCS (0.0-0.0); Neutrophils # (A) 1.98 X 10*3/uL (1.80-7.70); Neutrophils % (A) 41.6 %; Platelet Count 309 X 10*3/uL (140-440); RBC 4.42 X 10*6/uL (4.10-5.20); RDW 12.5 % (11.5-14.5); WBC 4.76 X 10*3/uL (4.50-10.00)
[2022-01-18 19:50] LABS: African American GFR (CKD) 102.8 (60.0-200.0); Albumin 4.3 g/dL (3.8-4.9); Albumin/Globulin Ratio 1.98 (1.60-3.17); Anion Gap 15.4 mmol/L (10.00-18.00); BUN/Creat Ratio 6.07 Ratio (12.00-20.00); Blood Urea Nitrogen 4.8 mg/dL (9.0-27.0); Calcium 9.3 mg/dL (8.7-10.3); Globulin 2.2 g/dL (1.6-3.3); Non-African American GFR(CKD) 88.7 (60.0-200.0); Potassium 3.5 mmol/L (3.5-5.5); Total Bilirubin 0.5 mg/dL (0.30-1.20); Total Protein 6.5 g/dL (6.2-8.2)
== END | disposition home or self-care (01) ==
LOC: LABWHC1 12:48
PROVIDERS: ATTEND Nurse Practitioner Family
DX: G35 Multiple sclerosis (principal)
CPT/HCPCS: 36415; 80053; 80074; 85025

== ENCOUNTER → 2022-02-04 | Outpatient (CLI) | payer OTHER ==
--- NOTE | 2022-02-05 08:17 | XR ---
EXAMINATION TYPE: XR abdomen 2V DATE OF EXAM: 02/04/2022 COMPARISON: NONE HISTORY: Pain TECHNIQUE: One view abdominal series FINDINGS: The osseous structures are intact. The bowel gas pattern is nonspecific. Lung bases are clear. Surg ical clips right upper quadrant. Postsurgical changes in the pelvis and arthropathy of the hips. Carly ined debris throughout the colon. IMPRESSION: 1. Nonspecific abdomen.
== END | disposition home or self-care (01) ==
LOC: RADXRMAIN 16:28
PROVIDERS: ATTEND Internal Medicine
DX: K57.32 Diverticulitis of large intestine without perforation or abscess without bleeding (principal)
CPT/HCPCS: 74019

== ENCOUNTER 2022-03-07 17:49 | Emergency (ER) | payer OTHER ==
[2022-03-07 18:14] VITALS: RESP 18; TEMP 98.3
[2022-03-07 18:50] LABS: HCT 47.2 % (34.0-46.0); MCH 30.7 pg (25.0-35.0); MCHC 31.9 g/dL (31.0-37.0); MCV 96.4 fL (80.0-100.0); Mean Platelet Volume 7.6; Platelet Count 311 k/uL (150-450); RBC 4.89 m/uL (3.80-5.40); RDW 12.1 % (11.5-15.5); WBC 8.2 k/uL (3.8-10.6)
[2022-03-07 19:01] LABS: ALT 31 U/L (4-34); AST 25 U/L (14-36); African American GFR (CKD) >90 (>60 ml/min/1.73 sqM); Albumin 4.3 g/dL (3.5-5.0); Alkaline Phosphatase 71 U/L (38-126); Anion Gap 6 mmol/L; Blood Urea Nitrogen 16 mg/dL (7-17); Calcium 9.7 mg/dL (8.4-10.2); Carbon Dioxide 32 mmol/L (22-30); Chloride 102 mmol/L (98-107); Glucose 90 mg/dL (74-99); Non-African American GFR(CKD) >90 (>60 ml/min/1.73 sqM); Potassium 3.9 mmol/L (3.5-5.1); Sodium 140 mmol/L (137-145); Total Bilirubin 0.5 mg/dL (0.2-1.3)
--- NOTE | 2022-03-07 19:06 | ED ---
General Adult HPI - General Chief complaint: Neuro Symptoms/Deficit Stated complaint: tingling,numbness Time Seen by Provider: 03/07/22 18:52 Source: patient Mode of arrival: wheelchair Limitations: no limitations - History of Present Illness Initial comments: Patient presents to the ED with multiple neurological complaints. Patient states that she was recently diagnosed with multiple sclerosis, for which she is being followed by neurology. Patient states that about 2 hours ago, she developed "numbness of my throat and tongue" and "tingling down my left arm and left leg". Patient also states that she has had a rapid pulse rate since this morning. Patient denies having any pain, fever or chills, headache, focal weakness, visual changes, neck/back/extremity pain, chest pain or pressure, dyspnea, cough or cold symptoms, dizziness, abdominal pain, nausea/vomiting/diarrhea, dysuria or urinary symptoms, or any other symptoms or complaints. Code stroke activation was called on patient's arrival to the ED. Patient is on Xarelto anticoagulation therapy. - Related Data Home Medications Medication Instructions Recorded Confirmed Atorvastatin [Lipitor] 40 mg PO HS 08/13/20 07/27/21 DULoxetine HCL [Cymbalta] 60 mg PO DAILY 08/13/20 07/27/21 Metoprolol Succinate [Toprol XL] 25 mg PO DAILY 08/13/20 07/27/21 Albuterol Sulfate [Albuterol 1 - 2 puff INHALATION RT-Q6H PRN 09/23/20 07/27/21 Sulfate Hfa] Gabapentin 600 mg PO BID 09/23/20 07/27/21 Pantoprazole Sodium [Protonix] 40 mg PO BID 09/23/20 07/27/21 Acetaminophen Tab [Tylenol] 1,000 mg PO Q6H PRN 01/09/21 07/27/21 Clindamycin HCl 300 mg PO Q8H 07/27/21 07/27/21 Losartan Potassium 100 mg PO DAILY 07/27/21 07/27/21 Sucralfate [Carafate] 1 gm PO BID PRN 07/27/21 07/27/21 Tiotropium 2.5 Mcg/Puff [Spiriva 2 puff INHALATION RT-DAILY 07/27/21 07/27/21 Respimat 2.5 Mcg] Tobra-Dexamet 0.3-0.1% Eye Glenna 1 drop BOTH EYES BID 07/27/21 07/27/21 [Tobradex Ophth Susp] busPIRone HCL 15 mg PO BID 07/27/21 07/27/21 Previous Rx's Medication Instructions Recorded Rivaroxaban [Xarelto] 20 mg PO W/SUPPER #30 tab 01/10/21 Butalb/APAP/Caff 50-325-40Mg 2 each PO Q4HR PRN #36 tab 07/29/21 [Fioricet 50-325-40] Allergies Allergy/AdvReac Type Severity Reaction Status Date / Time Penicillins Allergy Unknown Verified 03/07/22 18:14 codeine AdvReac Nausea & Verified 03/07/22 18:14 [From Tylenol-Codeine #3] Vomiting Review of Systems ROS Statement: Those systems with pertinent positive or pertinent negative responses have been documented in the HPI. ROS Other: All systems not noted in ROS Statement are negative. Past Medical History Past Medical History: Asthma, COPD, CVA/TIA, Hyperlipidemia, Hypertension, Pulmonary Embolus (PE), Sleep Apnea/CPAP/BIPAP Additional Past Medical History / Comment(s): PE dx. in May, doesn't use CPAP currently-uses O2 2l @[facility], ?TIA in May-no residual effects other than some intermittent numbness/tingling left arm, "pre-cancerous" cells breast & family hx.-grandmother & aunt History of Any Multi-Drug Resistant Organisms: None Reported Past Surgical History: Breast Surgery, Cholecystectomy, Hernia Repair, Hysterectomy Additional Past Surgical History / Comment(s): prophylactic mastectomy stephanie D/T family hx Past Anesthesia/Blood Transfusion Reactions: No Reported Reaction Past Psychological History: Anxiety, Depression Smoking Status: Former smoker Past Alcohol Use History: None Reported Past Drug Use History: None Reported - Past Family History Mother Additional Family Medical History / Comment(s): had heart valve replacement General Exam Limitations: no limitations General appearance: alert, in no apparent distress Head exam: Present: atraumatic, normocephalic Eye exam: Present: normal appearance, PERRL, EOMI ENT exam: Present: mucous membranes moist Neck exam: Present: other (Trachea is midline). Absent: tenderness, meningismus Respiratory exam: Present: normal lung sounds bilaterally. Absent: respiratory distress, wheezes, rales, rhonchi, stridor Cardiovascular Exam: Present: regular rate, normal rhythm, normal heart sounds, other (Normal radial pulses bilaterally) GI/Abdominal exam: Present: soft. Absent: distended, tenderness, guarding Extremities exam: Present: full ROM. Absent: tenderness, pedal edema, calf tenderness Back exam: Present: normal inspection. Absent: tenderness Neurological exam: Present: alert, oriented X3, CN II-XII intact, other (Decreased sensation to light touch along left arm and left leg; 5/5 strength in all 4 extremities; no extremity drift; NIH stroke scale score = 1) Psychiatric exam: Present: normal affect, normal mood Skin exam: Present: warm, dry, intact, normal color Course Vital Signs 03/07/22 03/07/22 03/07/22 18:12 18:55 19:10 Temperature 98.3 F Pulse Rate 103 H 85 90 Respiratory 18 18 18 Rate Blood Pressure 138/87 135/110 138/94 O2 Sat by Pulse 98 95 95 Oximetry 03/07/22 03/07/22 03/07/22 19:25 19:40 19:55 Temperature Pulse Rate 88 90 90 Respiratory 18 18 18 Rate Blood Pressure 126/104 143/90 133/91 O2 Sat by Pulse 95 95 96 Oximetry 03/07/22 03/07/22 03/07/22 20:20 20:50 21:20 Temperature Pulse Rate 90 90 85 Respiratory 18 18 18 Rate Blood Pressure 128/89 140/98 132/84 O2 Sat by Pulse 98 97 98 Oximetry 03/07/22 21:50 Temperature Pulse Rate 82 Respiratory 18 Rate Blood Pressure 138/96 O2 Sat by Pulse 97 Oximetry - Reevaluation(s) Reevaluation #1: 03/07/22 19:04 Case, H&P and code stroke activation were discussed with Dr. Gary (neurointerventionalist). He agrees that the patient's symptoms are likely secondary to her recent MS diagnosis and that she is not a TPA candidate. He agrees with obtaining a head CT and looking for potential causes for an MS exacerbation. He has no further recommendations at this time. 03/07/22 20:18 Case, H&P and test results were discussed with Dr. Farr (neurology). She agrees that the patient's symptoms are likely secondary to her recent MS diagnosis. She recommends treating the patient with 1 g of IV Solu-Medrol, then discharging the patient home for outpatient follow-up with her neurologist. She has no further recommendations at this time. 03/07/22 23:11 Patient remains alert and breathing comfortably. Patient's neurological exam is unchanged. Patient has received her Solu-Medrol IV infusion in the ED. Patient is aware of her test results and my discussion with Dr. Farr as above, and she feels comfortable being discharged home at this time. Patient was instructed to, and agrees to, follow-up closely with her neurologist, and I have advised that she call her neurologist tomorrow to schedule a close follow-up appointment. Patient was clearly explained return and follow-up instructions, and she was instructed to also follow up closely with her primary care provider. Patient feels comfortable with this plan. EKG Findings - EKG Comments: EKG Findings:: Normal sinus rhythm, ventricular rate of 96 bpm, no ectopy, normal NV and QRS intervals, normal QT interval, normal axis, anterior ST and T- wave abnormality Medical Decision Making - Medical Decision Making Patient's head CT is negative. Patient's labs are fairly unremarkable. Patient reports recently being diagnosed with MS, for which she is followed by a neurologist. I suspect that the patient's symptoms are likely secondary to her MS, and Dr. Farr (neurology) concurs. Patient was treated with Solu-Medrol 1 g IVPB in the ED per Dr. Farr's recommendations. Will discharge patient home at this time with instructions to follow up closely with her neurologist, as well as her primary care provider. Patient feels comfortable with this plan. - Lab Data Result diagrams: 03/07/22 19:13 03/07/22 18:39 Lab Results 03/07/22 03/07/22 03/07/22 Range/Units 18:39 18:39 19:13 WBC 8.2 8.4 (3.8-10.6) k/uL RBC 4.89 4.91 (3.80-5.40) m/uL Hgb 15.0 15.3 (11.4-16.0) gm/dL Hct 47.2 H 47.6 H (34.0-46.0) % MCV 96.4 97.0 (80.0-100.0) fL MCH 30.7 31.1 (25.0-35.0) pg MCHC 31.9 32.1 (31.0-37.0) g/dL RDW 12.1 12.8 (11.5-15.5) % Plt Count 311 330 (150-450) k/uL MPV 7.6 7.7 Neutrophils % 77 % Lymphocytes % 16 % Monocytes % 5 % Eosinophils % 1 % Basophils % 0 % Neutrophils # 6.4 (1.3-7.7) k/uL Lymphocytes # 1.4 (1.0-4.8) k/uL Monocytes # 0.4 (0-1.0) k/uL Eosinophils # 0.1 (0-0.7) k/uL Basophils # 0.0 (0-0.2) k/uL PT (9.0-12.0) sec INR (<1.2) APTT (22.0-30.0) sec Sodium 140 (137-145) mmol/L Potassium 3.9 (3.5-5.1) mmol/L Chloride 102 (98-107) mmol/L Carbon Dioxide 32 H (22-30) mmol/L Anion Gap 6 mmol/L BUN 16 (7-17) mg/dL Creatinine 0.73 (0.52-1.04) mg/dL Est GFR (CKD-EPI)AfAm >90 (>60 ml/min/1.73 sqM) Est GFR (CKD-EPI)NonAf >90 (>60 ml/min/1.73 sqM) Glucose 90 (74-99) mg/dL Calcium 9.7 (8.4-10.2) mg/dL Total Bilirubin 0.5 (0.2-1.3) mg/dL AST 25 (14-36) U/L ALT 31 (4-34) U/L Alkaline Phosphatase 71 (38-126) U/L Troponin I (0.000-0.034) ng/mL Total Protein 7.0 (6.3-8.2) g/dL Albumin 4.3 (3.5-5.0) g/dL Urine Color Urine Appearance (Clear) Urine pH (5.0-8.0) Ur Specific [place] (1.001-1.035) Urine Protein (Negative) Urine Glucose (UA) (Negative) Urine Ketones (Negative) Urine Blood (Negative) Urine Nitrite (Negative) Urine Bilirubin (Negative) Urine Urobilinogen (<2.0) mg/dL Ur Leukocyte Esterase (Negative) 03/07/22 03/07/22 03/07/22 Range/Units 19:13 19:13 22:42 WBC (3.8-10.6) k/uL RBC (3.80-5.40) m/uL Hgb (11.4-16.0) gm/dL Hct (34.0-46.0) % MCV (80.0-100.0) fL MCH (25.0-35.0) pg MCHC (31.0-37.0) g/dL RDW (11.5-15.5) % Plt Count (150-450) k/uL MPV Neutrophils % % Lymphocytes % % Monocytes % % Eosinophils % % Basophils % % Neutrophils # (1.3-7.7) k/uL Lymphocytes # (1.0-4.8) k/uL Monocytes # (0-1.0) k/uL Eosinophils # (0-0.7) k/uL Basophils # (0-0.2) k/uL PT 9.7 (9.0-12.0) sec INR 0.9 (<1.2) APTT 22.4 (22.0-30.0) sec Sodium (137-145) mmol/L Potassium (3.5-5.1) mmol/L Chloride (98-107) mmol/L Carbon Dioxide (22-30) mmol/L Anion Gap mmol/L BUN (7-17) mg/dL Creatinine (0.52-1.04) mg/dL Est GFR (CKD-EPI)AfAm (>60 ml/min/1.73 sqM) Est GFR (CKD-EPI)NonAf (>60 ml/min/1.73 sqM) Glucose (74-99) mg/dL Calcium (8.4-10.2) mg/dL Total Bilirubin (0.2-1.3) mg/dL AST (14-36) U/L ALT (4-34) U/L Alkaline Phosphatase (38-126) U/L Troponin I <0.012 (0.000-0.034) ng/mL Total Protein (6.3-8.2) g/dL Albumin (3.5-5.0) g/dL Urine Color Yellow Urine Appearance Clear (Clear) Urine pH 6.5 (5.0-8.0) Ur Specific [place] 1.024 (1.001-1.035) Urine Protein Trace H (Negative) Urine Glucose (UA) Negative (Negative) Urine Ketones Negative (Negative) Urine Blood Negative (Negative) Urine Nitrite Negative (Negative) Urine Bilirubin Negative (Negative) Urine Urobilinogen <2.0 (<2.0) mg/dL Ur Leukocyte Esterase Negative (Negative) - Radiology Data Chest x-ray: No active cardiopulmonary disease. No change. Noncontrast head CT: No acute intracranial abnormality. No change compared to old exam. Disposition Clinical Impression: Paresthesias Disposition: HOME SELF-CARE Condition: Stable Instructions (If sedation given, give patient instructions): Multiple Sclerosis (DC), Paresthesia (ED) Additional Instructions: Return to the ER immediately should you develop new or worsening numbness, any weakness, visual changes, any significant pain, feeling dizzy or faint, shortness of breath, or new or worsening symptoms. Follow up closely with your neurologist, as well as your primary care provider. Is patient prescribed a controlled substance at d/c from ED?: No Referrals: Amy Jackson MD [Primary Care Provider] - 1-2 days Time of Disposition: 23:13
[2022-03-07 19:21] LABS: Basophils % (A) 0 %; Eosinophils # (A) 0.1 k/uL (0-0.7); Eosinophils % (A) 1 %; HCT 47.6 % (34.0-46.0); HGB 15.3 gm/dL (11.4-16.0); Lymphocytes # (A) 1.4 k/uL (1.0-4.8); Lymphocytes % (A) 16 %; MCH 31.1 pg (25.0-35.0); MCHC 32.1 g/dL (31.0-37.0); Mean Platelet Volume 7.7; Monocytes # (A) 0.4 k/uL (0-1.0); Monocytes % (A) 5 %; Neutrophils # (A) 6.4 k/uL (1.3-7.7); Neutrophils % (A) 77 %; Platelet Count 330 k/uL (150-450); RBC 4.91 m/uL (3.80-5.40); RDW 12.8 % (11.5-15.5); WBC 8.4 k/uL (3.8-10.6)
--- NOTE | 2022-03-07 19:33 | XR ---
EXAMINATION TYPE: XR chest 1V portable DATE OF EXAM: 03/07/2022 COMPARISON: 07/27/2021 HISTORY: Altered mental status TECHNIQUE: FINDINGS: There is no heart failure nor confluent pneumonic infiltrate. Costophrenic angles are clear . There are no hilar masses. Bony thorax appears intact. IMPRESSION: No active cardiopulmonary disease. No change.
[2022-03-07 19:37] LABS: INR 0.9 (<1.2); Partial Thromboplastin Time 22.4 sec (22.0-30.0); Prothrombin Time 9.7 sec (9.0-12.0)
--- NOTE | 2022-03-07 19:41 | CT ---
EXAMINATION TYPE: CT brain wo con for TPA DATE OF EXAM: 03/07/2022 COMPARISON: 07/27/2021 HISTORY: Left arm tingling, left leg pain, MS CT DLP: 1052.4 mGycm Automated exposure control for dose reduction was used. Images of the brain obtained without contrast. Ventricles are of normal size. There is no mass effect nor midline shift. No sign of intracranial hem orrhage. The calvarium is intact. There is normal aeration of the mastoid sinuses. IMPRESSION: No acute intracranial abnormality. No change compared to old exam.
[2022-03-07] MEDS ORDERED: methylPREDNISolone SOD SUCCIN 1,000 MG in SODIUM CHLORIDE 0.9% 250 ML IVPB STA (20:30)
[2022-03-07 23:06] LABS: Appearance,Urine Clear (Clear); Bilirubin,Urine Negative (Negative); Blood,Urine Negative (Negative); Color,Urine Yellow; Glucose,Urine (UA) Negative (Negative); Ketones,Urine Negative (Negative); Leukocyte Esterase,Urine Negative (Negative); Nitrite,Urine Negative (Negative); PH, Urine 6.5 (5.0-8.0); Protein,Urine Trace (Negative); Specific Gravity,Urine 1.024 (1.001-1.035); Urobilinogen,Urine <2.0 mg/dL (<2.0)
[2022-03-07 23:32] VITALS: BP 138/85; PULSE 73
== END 2022-03-07 23:37 | disposition home or self-care (01) ==
LOC: EC 17:49
DX: R20.2 Paresthesia of skin (principal); E78.5 Hyperlipidemia, unspecified; I10 Essential (primary) hypertension; J44.9 Chronic obstructive pulmonary disease, unspecified; Z79.01 Long term (current) use of anticoagulants; Z86.73 Personal history of transient ischemic attack (TIA), and cerebral infarction without residual deficits; Z87.891 Personal history of nicotine dependence; Z88.0 Allergy status to penicillin; Z88.5 Allergy status to narcotic agent; Z88.6 Allergy status to analgesic agent; Z79.899 Other long term (current) drug therapy; Z79.51 Long term (current) use of inhaled steroids
CPT/HCPCS: 36415; 93005; 80053; 84484; 85025; 85027; 85610; 85730; 81003; 71045; 70450; 99284; 96365; J2930; 96366

== ENCOUNTER → 2022-04-12 | Outpatient (CLI) | payer OTHER ==
--- NOTE | 2022-04-12 11:36 | XR ---
KUB HISTORY: Right flank pain Frontal KUB and 2 images Lung bases are clear. Surgical clips present in the right upper quadrant. There are overlying artifac ts, there are surgical clips present within the pelvis. No pneumoperitoneum. Overlying bowel gas may obscure detail. There are air-fluid levels present without bowel distention. Bone mineralization is n ormal. IMPRESSION: Correlate for enteritis, ileus, follow-up as indicated.
== END | disposition home or self-care (01) ==
LOC: RADXRMAIN 10:05
PROVIDERS: ATTEND Internal Medicine
DX: R10.9 Unspecified abdominal pain (principal); K56.7 Ileus, unspecified
CPT/HCPCS: 74018

== ENCOUNTER → 2022-04-27 | Outpatient (CLI) | payer OTHER ==
--- NOTE | 2022-04-27 21:01 | CT ---
EXAMINATION TYPE: CT abdomen pelvis w con DATE OF EXAM: 04/27/2022 HISTORY: generalized abdominal pain and some kidney pain CT DLP: 958.60mGycm Automated Exposure Control for Dose Reduction was Utilized. CONTRAST: CT scan of the abdomen and pelvis is performed with oral and with IV Contrast, patient injected with 100 mL of Isovue 300. COMPARISON: None. FINDINGS: LUNG BASES: Mild cardiomegaly. Partial visualization of bilateral breast implants with some infolding and peripheral rim calcification. LIVER/GB: Cholecystectomy clips are seen. PANCREAS: No significant abnormality is seen. SPLEEN: There is 1.3 cm round low-density lesion in the splenic axial image 20, this is nonspecific, benign etiology is favored. ADRENALS: No significant abnormality is seen. KIDNEYS: No significant abnormality is seen. BOWEL: Small size hiatal hernia. Oral contrast reaches level of the proximal to mid transverse colon. No suspicious small or large bowel dilatation is seen. Slightly redundant sigmoid colon noted. UTERUS/ADNEXA: Uterus is surgically absent. LYMPH NODES: No greater than 1cm abdominal or pelvic lymph nodes are appreciated. OSSEOUS STRUCTURES: No significant abnormality is seen. OTHER: Surgical clips anterior abdominal wall below the umbilicus extending inferiorly are present. S ome scar tissue is seen. No hernia is evident. IMPRESSION: No significant acute finding is seen to account for patient's clinical symptoms of genera lized abdominal and some kidney pain.
== END | disposition home or self-care (01) ==
LOC: RADCTMAIN 16:50
PROVIDERS: ATTEND Internal Medicine
DX: R10.84 Generalized abdominal pain (principal)
CPT/HCPCS: 74177; Q9967

== ENCOUNTER → 2022-06-09 | Outpatient (CLI) | payer OTHER ==
[2022-06-09 19:14] LABS: HCT 42.6 % (37.2-46.3); HGB 14.7 g/dL (12.0-15.0); MCHC 34.5 g/dL (32.0-37.0); MCV 92.8 fL (80.0-97.0); Mean Platelet Volume 11.3 fL (9.5-12.2); NRBC Per 100 WBC 0 /100 WBCS (0.0-0.0); Platelet Count 277 X 10*3/uL (140-440); RBC 4.59 X 10*6/uL (4.10-5.20); RDW 12.2 % (11.5-14.5); WBC 4.04 X 10*3/uL (4.50-10.00)
[2022-06-09 19:37] LABS: African American GFR (CKD) 92.5 (60.0-200.0); Albumin 4.7 g/dL (3.8-4.9); Albumin/Globulin Ratio 1.54 (1.60-3.17); Anion Gap 16.1 mmol/L (10.00-18.00); BUN/Creat Ratio 8.66 Ratio (12.00-20.00); Blood Urea Nitrogen 7.4 mg/dL (9.0-27.0); Calcium 9.8 mg/dL (8.7-10.3); Globulin 3.1 g/dL (1.6-3.3); Non-African American GFR(CKD) 79.8 (60.0-200.0); Potassium 3.5 mmol/L (3.5-5.5); Total Bilirubin 0.5 mg/dL (0.30-1.20); Total Protein 7.8 g/dL (6.2-8.2)
== END | disposition home or self-care (01) ==
LOC: LABWHC1 13:08
PROVIDERS: ATTEND Nurse Practitioner Acute Care
DX: E55.9 Vitamin D deficiency, unspecified (principal); E53.9 Vitamin B deficiency, unspecified; G35 Multiple sclerosis; H53.8 Other visual disturbances
CPT/HCPCS: 36415; 80053; 82306; 82607; 84207; 85027

== ENCOUNTER → 2022-07-02 | Outpatient (CLI) | payer OTHER ==
--- NOTE | 2022-07-07 15:20 | CT ---
EXAMINATION TYPE: CT chest w con DATE OF EXAM: 07/02/2022 COMPARISON: 06/04/2021 HISTORY: Solitary pulmonary nodule CT DLP: 349.1 mGycm, Automated exposure control for dose reduction was used. CONTRAST: Performed injected with 70 mL of Isovue 300. TECHNIQUE: Axial images were obtained at 5 mm thick sections. Reconstructed images are reviewed on Singular computer in the coronal plane. FINDINGS: Portion of the thyroid visualized is normal. Left infrahilar region, series 4 image 32 there is some thickening between the vascular structures no t present previously. This measures 0.7 cm in length. Consider PET/CT for additional evaluation. Previous left lower lobe nodule, series 4 image 37, measures 0.5 cm and is stable from comparison. No enlarged mediastinal or hilar adenopathy is evident. The ascending aorta diameter at the level o f the main pulmonary artery is 3.0 cm. The main pulmonary artery diameter at the bifurcation is 2.3 cm. Bilateral breast prostheses are present. Small hiatal hernia is present. Limited CT sections are obtained through the upper abdomen. There is a splenic cyst in the superior p ortion of the spleen measuring 1.5 cm and 10 Hounsfield units. Gallbladder is surgically absent. IMPRESSIONS: 1. There is a very subtle new area of thickening in the left infrahilar region which may measure 0.7 cm. PET/CT may be useful for workup. 2. Previous left lower lobe nodule appears stable in comparison
== END | disposition home or self-care (01) ==
LOC: RADCTMAIN 11:19
PROVIDERS: ATTEND Internal Medicine
DX: R91.1 Solitary pulmonary nodule (principal)
CPT/HCPCS: 71260; Q9967

== ENCOUNTER 2022-07-08 22:41 | Emergency (ER) | payer OTHER ==
--- NOTE | 2022-07-08 23:52 | XR ---
EXAMINATION TYPE: XR chest 2V DATE OF EXAM: 07/08/2022 COMPARISON: 06/22/2022 HISTORY: Short of breath cough TECHNIQUE: FINDINGS: There is no heart failure nor confluent pneumonic infiltrate. Costophrenic angles are clear . There are no hilar masses. IMPRESSION: No active cardiopulmonary disease. Mild cardiomegaly. No significant change.
[2022-07-09] MEDS ORDERED: ACETAMINOPHEN TAB 500 MG TAB PO STA (02:45)
[2022-07-09] MEDS ORDERED: predniSONE 50 MG TAB PO STA (02:45)
[2022-07-09] MEDS ORDERED: IPRATROPIUM-ALBUTEROL 3 ML NEB INHALATION STA (02:45)
--- NOTE | 2022-07-09 02:52 | ED ---
SOB HPI - General Chief Complaint: Shortness of Breath Stated Complaint: Chest pain Time Seen by Provider: 07/09/22 02:05 Source: patient, RN notes reviewed Mode of arrival: wheelchair Limitations: no limitations - History of Present Illness Initial Comments: This is a pleasant 52-year-old female with a history of multiple medical issues as listed in the chart. Patient presents today stating that she has had shortness of breath, cough, body aches, runny nose, productive cough. Patient has a history of COPD and actually recently restarted smoking cigarettes. No history of CPAP and uses O2 at night. Patient on breathing treatments at home. Patient states she also has a history of MS. Patient had to undergo a corticosteroid burst a few weeks ago. Patient tested negative for COVID-19 in triage. Patient states she is getting discomfort with breathing. Patient states she has a history of a pulmonary embolus as well. Patient is on Xarelto daily and states she has not missed a dose. No headache, no fever or chills, no changes in vision or hearing, no sore throat or difficulty with speech, no neck pain, no chest pain or shortness of breath, no abdominal pain, no nausea or vomiting, no changes in urination or bowel movements, no numbness or tingling, no extremity pain, no skin rashes or lesions. Past medical, surgical, social, and family history reviewed. - Related Data Home Medications Medication Instructions Recorded Confirmed Atorvastatin [Lipitor] 40 mg PO HS 08/13/20 07/27/21 DULoxetine HCL [Cymbalta] 60 mg PO DAILY 08/13/20 07/27/21 Metoprolol Succinate [Toprol XL] 25 mg PO DAILY 08/13/20 07/27/21 Albuterol Sulfate [Albuterol 1 - 2 puff INHALATION RT-Q6H PRN 09/23/20 07/27/21 Sulfate Hfa] Gabapentin 600 mg PO BID 09/23/20 07/27/21 Pantoprazole Sodium [Protonix] 40 mg PO BID 09/23/20 07/27/21 Acetaminophen Tab [Tylenol] 1,000 mg PO Q6H PRN 01/09/21 07/27/21 Losartan Potassium 100 mg PO DAILY 07/27/21 07/27/21 Sucralfate [Carafate] 1 gm PO BID PRN 07/27/21 07/27/21 Tiotropium 2.5 Mcg/Puff [Spiriva 2 puff INHALATION RT-DAILY 07/27/21 07/27/21 Respimat 2.5 Mcg] Tobra-Dexamet 0.3-0.1% Eye Glenna 1 drop BOTH EYES BID 07/27/21 07/27/21 [Tobradex Ophth Susp] busPIRone HCL 15 mg PO BID 07/27/21 07/27/21 clindamycin HCL [Clindamycin HCl] 300 mg PO Q8H 07/27/21 07/27/21 Previous Rx's Medication Instructions Recorded Rivaroxaban [Xarelto] 20 mg PO W/SUPPER #30 tab 01/10/21 Butalb/APAP/Caff 50-325-40Mg 2 each PO Q4HR PRN #36 tab 07/29/21 [Fioricet 50-325-40] Potassium Chloride ER [K-Dur 10] 10 meq PO DAILY #10 tab 07/09/22 Allergies Allergy/AdvReac Type Severity Reaction Status Date / Time Penicillins Allergy Unknown Verified 07/08/22 23:03 codeine AdvReac Nausea & Verified 07/08/22 23:03 [From Tylenol-Codeine #3] Vomiting Review of Systems ROS Statement: Those systems with pertinent positive or pertinent negative responses have been documented in the HPI. ROS Other: All systems not noted in ROS Statement are negative. Past Medical History Past Medical History: Asthma, COPD, CVA/TIA, Hyperlipidemia, Hypertension, Pulmonary Embolus (PE), Sleep Apnea/CPAP/BIPAP Additional Past Medical History / Comment(s): PE dx. in May, doesn't use CPAP currently-uses O2 2l @[facility], ?TIA in May-no residual effects other than some intermittent numbness/tingling left arm, "pre-cancerous" cells breast & family hx.-grandmother & aunt History of Any Multi-Drug Resistant Organisms: None Reported Past Surgical History: Breast Surgery, Cholecystectomy, Hernia Repair, Hysterectomy Additional Past Surgical History / Comment(s): prophylactic mastectomy stephanie D/T family hx Past Anesthesia/Blood Transfusion Reactions: No Reported Reaction Past Psychological History: Anxiety, Depression Smoking Status: Former smoker Past Alcohol Use History: None Reported Past Drug Use History: None Reported - Past Family History Mother Additional Family Medical History / Comment(s): had heart valve replacement General Exam - General Exam Comments Initial Comments: Patient sleeping comfortably when I enter the room. Patient does have a dry cough noted. However no adventitious lung sounds. Pulse oximetry 100% on room air. Vital signs stable, patient afebrile. Capillary refill less than 2 seconds. Slight the patient symptomology patient does not look ill or toxic. Adequate peripheral perfusion. No modeling. Moist mucous membranes Limitations: no limitations General appearance: alert, in no apparent distress Head exam: Present: atraumatic, normocephalic, normal inspection Eye exam: Present: normal appearance, PERRL, EOMI. Absent: scleral icterus, conjunctival injection, periorbital swelling ENT exam: Present: normal exam, normal oropharynx, mucous membranes moist, normal external ear exam. Absent: mucous membranes dry Neck exam: Present: normal inspection, full ROM. Absent: tenderness, meningismus, lymphadenopathy Respiratory exam: Present: normal lung sounds bilaterally. Absent: respiratory distress, wheezes, rales, rhonchi, stridor Cardiovascular Exam: Present: regular rate, normal rhythm, normal heart sounds. Absent: systolic murmur, diastolic murmur, rubs, gallop, clicks GI/Abdominal exam: Present: soft, normal bowel sounds. Absent: distended, tenderness, guarding, rebound, rigid Extremities exam: Present: normal inspection, full ROM, normal capillary refill. Absent: tenderness, pedal edema, joint swelling, calf tenderness Back exam: Present: normal inspection Neurological exam: Present: alert, oriented X3, CN II-XII intact Psychiatric exam: Present: normal affect, normal mood Skin exam: Present: warm, dry, intact, normal color. Absent: rash Course Vital Signs 07/08/22 07/09/22 07/09/22 22:58 03:39 03:49 Temperature 99.5 F Pulse Rate 91 90 90 Respiratory 22 Rate Blood Pressure 100/52 O2 Sat by Pulse 100 Oximetry Medical Decision Making - Medical Decision Making Patient represents with Symptomology consistent with viral bronchitis. Patient's chest x-ray was clear. SpO2 100% on room air. Patient had bodyaches. There were no adventitious lung sounds. Patient did have a dry cough. Patient did have some pain with breathing which indicates possible superimposed pleurisy. No consistent with cardiovascular disease. Patient is already on Xarelto. Given the patient's vital signs, oxygen saturation, and anticoagulation. Pulmonary embolism does not fit the clinical picture. Does not appear to be consistent with bacterial infection. Patient's potassium was 3.2. I did supplement this here. We'll supplement home with 10 mg once daily for 10 days. We'll recheck next week. Patient given a prescription to have her rechecked on Tuesday. She should follow-up with her regular doctor. Patient voiced understanding. All questions answered. The case was discussed in detail with ED attending physician. Presentation, findings, treatment plan discussed in detail. Patient was told to return to the ER for any signs or symptoms worsen. Told to return immediately if any other problems arise. All questions answered. Treatment plan discussed. Patient in agreement Every effort has been made to ensure accuracy of this dictation. However, due to the limitations of electronic medical records and dictation devices, errors in charting still occur. Dicer Machine Operator Dr. Rossi - Lab Data Result diagrams: 07/09/22 03:58 07/09/22 03:58 Lab Results 07/08/22 07/09/22 07/09/22 Range/Units 23:10 03:58 03:58 WBC 4.7 (3.8-10.6) k/uL RBC 3.76 L (3.80-5.40) m/uL Hgb 11.5 (11.4-16.0) gm/dL Hct 35.4 (34.0-46.0) % MCV 94.3 (80.0-100.0) fL MCH 30.7 (25.0-35.0) pg MCHC 32.6 (31.0-37.0) g/dL RDW 12.9 (11.5-15.5) % Plt Count 286 (150-450) k/uL MPV 7.5 Neutrophils % 62 % Lymphocytes % 21 % Monocytes % 10 % Eosinophils % 3 % Basophils % 0 % Neutrophils # 2.9 (1.3-7.7) k/uL Lymphocytes # 1.0 (1.0-4.8) k/uL Monocytes # 0.5 (0-1.0) k/uL Eosinophils # 0.1 (0-0.7) k/uL Basophils # 0.0 (0-0.2) k/uL Sodium 136 L (137-145) mmol/L Potassium 3.2 L (3.5-5.1) mmol/L Chloride 100 (98-107) mmol/L Carbon Dioxide 25 (22-30) mmol/L Anion Gap 11 mmol/L BUN 8 (7-17) mg/dL Creatinine 0.69 (0.52-1.04) mg/dL Est GFR (CKD-EPI)AfAm >90 (>60 ml/min/1.73 sqM) Est GFR (CKD-EPI)NonAf >90 (>60 ml/min/1.73 sqM) Glucose 116 H (74-99) mg/dL Calcium 9.0 (8.4-10.2) mg/dL Magnesium 1.5 L (1.6-2.3) mg/dL Total Bilirubin 0.6 (0.2-1.3) mg/dL AST 20 (14-36) U/L ALT 17 (4-34) U/L Alkaline Phosphatase 80 (38-126) U/L Total Protein 5.6 L (6.3-8.2) g/dL Albumin 3.4 L (3.5-5.0) g/dL Coronavirus (PCR) Not Detected (Not Detectd) - EKG Data -: EKG Interpreted by Dc EKG Comments: EKG done at 2310 and read by the ED attending physician reveals a short WV intervalwith the WV interval of 108 ms. Sinus rhythm with occasional PAC. When compared to the previous study from 03/07/2022 there is no significant change. No evidence of ST elevation or ST depression. Left axis deviation. Disposition Clinical Impression: Acute viral syndrome, Acute viral bronchitis, Viral upper respiratory infection, Hypokalemia Disposition: HOME SELF-CARE Condition: Good Instructions (If sedation given, give patient instructions): Hypokalemia (ED), Upper Respiratory Infection (ED), Acute Bronchitis (ED), Viral Syndrome (ED) Additional Instructions: Use [id number] Tylenol as directed on bottle for fever control and symptom control. Follow up with your regular physician for further evaluation. Continue your home nebulizer treatments as directed. Continue all medications as directed by your physician. Take the potassium supplementation as directed. Make an appointment with your regular doctor. You will need to have your potassium rechecked in 3-5 days. Follow-up with your regular physician as directed. Return to the ER immediately if any symptoms worsen, new symptoms arise, or any other problems develop. Prescriptions: Potassium Chloride ER [K-Dur 10] 10 meq PO DAILY #10 tab Is patient prescribed a controlled substance at d/c from ED?: No Referrals: Amy Jackson MD [Primary Care Provider] - 07/12/22 Time of Disposition: 04:33
[2022-07-09 04:24] LABS: ALT 17 U/L (4-34); AST 20 U/L (14-36); African American GFR (CKD) >90 (>60 ml/min/1.73 sqM); Albumin 3.4 g/dL (3.5-5.0); Alkaline Phosphatase 80 U/L (38-126); Anion Gap 11 mmol/L; Blood Urea Nitrogen 8 mg/dL (7-17); Carbon Dioxide 25 mmol/L (22-30); Chloride 100 mmol/L (98-107); Glucose 116 mg/dL (74-99); Magnesium 1.5 mg/dL (1.6-2.3); Non-African American GFR(CKD) >90 (>60 ml/min/1.73 sqM); Potassium 3.2 mmol/L (3.5-5.1); Sodium 136 mmol/L (137-145); Total Bilirubin 0.6 mg/dL (0.2-1.3); Total Protein 5.6 g/dL (6.3-8.2)
[2022-07-09 04:25] LABS: Basophils % (A) 0 %; Eosinophils # (A) 0.1 k/uL (0-0.7); Eosinophils % (A) 3 %; HCT 35.4 % (34.0-46.0); HGB 11.5 gm/dL (11.4-16.0); Lymphocytes % (A) 21 %; MCH 30.7 pg (25.0-35.0); MCHC 32.6 g/dL (31.0-37.0); MCV 94.3 fL (80.0-100.0); Mean Platelet Volume 7.5; Monocytes # (A) 0.5 k/uL (0-1.0); Monocytes % (A) 10 %; Neutrophils # (A) 2.9 k/uL (1.3-7.7); Neutrophils % (A) 62 %; Platelet Count 286 k/uL (150-450); RBC 3.76 m/uL (3.80-5.40); RDW 12.9 % (11.5-15.5); WBC 4.7 k/uL (3.8-10.6)
[2022-07-09] MEDS ORDERED: POTASSIUM CHLORIDE ER 20 MEQ TAB.ER PO STA (04:30)
[2022-07-09 06:06] VITALS: BP 130/77; PULSE 89; RESP 18; TEMP 98.2
== END 2022-07-09 06:05 | disposition home or self-care (01) ==
LOC: EC 22:41
DX: B34.9 Viral infection, unspecified (principal); J20.8 Acute bronchitis due to other specified organisms; J06.9 Acute upper respiratory infection, unspecified; E87.6 Hypokalemia; J45.909 Unspecified asthma, uncomplicated; Z86.73 Personal history of transient ischemic attack (TIA), and cerebral infarction without residual deficits; E78.5 Hyperlipidemia, unspecified; I10 Essential (primary) hypertension; F41.9 Anxiety disorder, unspecified; F32.A Depression, unspecified; Z87.891 Personal history of nicotine dependence; Z88.0 Allergy status to penicillin; Z88.5 Allergy status to narcotic agent; Z79.51 Long term (current) use of inhaled steroids; Z79.899 Other long term (current) drug therapy; Z20.822 Contact with and (suspected) exposure to COVID-19
CPT/HCPCS: 36415; 94640; 93005; 80053; 83735; 84484; 85025; 87635; 71046; 99285; J7512

== ENCOUNTER → 2022-07-09 | Outpatient (CLI) | payer OTHER ==
--- NOTE | 2022-07-09 16:15 | CT ---
EXAMINATION TYPE: CT angio chest DATE OF EXAM: 07/09/2022 COMPARISON: 07/02/2022 HISTORY: SOB. MS. Hx of PE. Hx of breast CA. CT DLP: 313.6 mGycm CONTRAST: CT chest with contrast and 3D reconstruction with MIP imaging is performed with IV Contrast, patient injected with 100cc mL of Isovue 370. Contrast-enhanced CT of the chest was performed through the course of the pulmonary arteries with domitila g and mediastinal window settings submitted. 3D reconstruction with MIP imaging was also performed. PULMONARY ARTERIES: The pulmonary arteries and their major tributaries are patent. I do not see vickey dence for sizable filling defect to suggest pulmonary embolic process. LUNGS: The lungs are clear and free of infiltrate. Scattered groundglass densities throughout both pina ng munoz may reflect acute inflammatory process. No evidence for atelectasis. Stable nodularity desc ribed previously. No pleural effusion. MEDIASTINUM: Thoracic aorta is of normal caliber,however, evaluation is limited given timing of the contrast bolus. If there is concern for thoracic aortic pathology consider STARLA. Correlate clinicall y . The heart is mildly enlarged. No evidence for mediastinal mass. No mediastinal lymph nodes grea ter than 1cm. HILAR STRUCTURES: No evidence for mass. No hilar lymph nodes greater than 1 cm. UPPER ABDOMEN: No significant abnormality is seen. IMPRESSION: 1. No evidence for Pulmonary embolism at this time.
== END | disposition home or self-care (01) ==
LOC: RADCTMAIN 15:23
PROVIDERS: ATTEND Internal Medicine
DX: R06.02 Shortness of breath (principal)
CPT/HCPCS: 71275; Q9967

== ENCOUNTER → 2022-07-23 | Outpatient (CLI) | payer OTHER ==
--- NOTE | 2022-07-25 08:10 | PE ---
EXAMINATION TYPE: PET CT fusion skull to thigh DATE OF EXAM: 07/23/2022 COMPARISON: Most recent CT abdomen and pelvis study April 27, 2022. CTA chest July 09, 2022. HISTORY: History of breast cancer [address], solitary pulmonary nodule TECHNIQUE: Following the intravenous administration of 11.9 mCi of F-18 FDG, whole body images are p erformed from the skull base to the midthigh. Images are reviewed on the computer in the coronal, ax ial, and sagittal planes. Reconstructed rotating images are created on independent workstation and r eviewed on the computer. A localization and attenuation correction CT is performed in conjunction w ith the PET scan. Blood glucose level equals 81 SCAN: Initial Scan FINDINGS: SKULL BASE AND NECK: No areas of abnormal hypermetabolic uptake. CHEST, MEDIASTINUM, AND HILAR REGION: Mild underlying emphysematous changes redemonstrated. No areas of abnormal hypermetabolic uptake. No new greater than 5 mm pulmonary nodules. ABDOMEN AND PELVIS: Nonspecific bowel uptake is present. No adrenal masses are seen. Normal excretion identified. No abnormal hypermetabolic uptake. OSSEOUS STRUCTURES: No abnormal hypermetabolic uptake. OTHER CT: . Mild linear scarring left lung base redemonstrated. Mastectomy changes with bilateral ramandeep ast implants again seen. Cardiomegaly redemonstrated. Cholecystectomy clips redemonstrated. Surgical changes to the anterior abdominal wall are redemonstra daria. Uterus surgically absent. Slight scoliotic curvature to the spine is noted. IMPRESSION: No areas of abnormal hypermetabolic uptake to suggest malignancy.
== END | disposition home or self-care (01) ==
LOC: RADPETMAIN 14:52
PROVIDERS: ATTEND Internal Medicine
DX: R91.1 Solitary pulmonary nodule (principal)
CPT/HCPCS: 78815; A9552

== ENCOUNTER → 2022-09-01 | Outpatient (CLI) | payer OTHER ==
[2022-09-02 03:38] LABS: Gliadin AB IgA, Deaminated NEGATIVE (NEGATIVE); Gliadin AB IgA, Unit 0.4 U/mL; Gliadin AB IgG, Deaminated NEGATIVE (NEGATIVE); Gliadin AB IgG, Unit 2.7 U/mL
== END | disposition home or self-care (01) ==
LOC: LABWHC1 14:36
PROVIDERS: ATTEND Nurse Practitioner Family
DX: K59.09 Other constipation (principal); E55.9 Vitamin D deficiency, unspecified
CPT/HCPCS: 36415; 82306; 83516